=== PATIENT | female | born 1970 | race Caucasian/White ===

== ENCOUNTER 2016-10-05 14:48 | Emergency (ER) | payer OTHER ==
[2016-10-05 15:26] VITALS: BP 121/71
--- NOTE | 2016-10-05 15:57 | UC ---
Skin Complaint HPI - HPI Summary HPI Summary: bee sting on right forearm Sunday--has been red and itchy concerned it is infected - History of Current Complaint Chief Complaint: UCSkin Time Seen by Provider: 10/05/16 16:00 Stated Complaint: INFLAMED BEE STING Hx Obtained From: Patient Hx Last Menstrual Period: 09/24/16 ?: No Onset/Duration: Sudden Onset, Lasting Days - 3, Still Present Skin Exposure Onset/Duration: Days Ago - 3 days ago Timing: Constant Onset Severity: Mild Current Severity: Mild Location: Discrete Character: Swelling, Hives, Redness Aggravating: Nothing Alleviating: OTC Meds - benadryl, Other - itching Associated Signs & Symptoms: Negative: Drainage, Bruising, Tenderness, Red Streaks Related History: Possible Reaction to: Insect - Allergy/Home Medications Allergies/Adverse Reactions: Allergies Allergy/AdvReac Type Severity Reaction Status Date / Time No Known Allergies Allergy Verified 11/18/15 13:44 Review of Systems Constitutional: Negative Skin: Rash - local reaction to bee sting right forearm Eyes: Negative ENT: Negative Respiratory: Negative Cardiovascular: Negative Gastrointestinal: Negative Genitourinary: Negative Neurovascular: Negative Musculoskeletal: Negative Neurological: Negative Psychological: Negative All Other Systems Reviewed And Are Negative: Yes PMH/Surg Hx/FS Hx/Imm Hx Previously Healthy: Yes Endocrine History Of: Denies: Diabetes Cardiovascular History Of: Denies: Hypertension, Pacemaker/ICD GI/ History Of: Denies: Renal Disease Cancer History Of: Denies: Breast Cancer - Surgical History Surgical History: Yes Surgery Procedure, Year, and Place: DNC 2013. laparotomy 2007 [facility] - Family History Known Family History: Positive: None Family History: denies cardiovascular issues in family lineage - Social History Occupation: Employed Full-time Lives: With Family Alcohol Use: None Substance Use Type: None Smoking Status (MU): Never Smoked Tobacco Physical Exam Triage Information Reviewed: Yes Appearance: Well-Appearing, No Pain Distress, Well-Nourished Vital Signs: Initial Vital Signs Temp 98.5 F 10/05/16 15:19 Pulse 70 10/05/16 15:19 Resp 16 10/05/16 15:19 BP 121/71 10/05/16 15:19 Pulse Ox 100 10/05/16 15:19 Vital Signs Reviewed: Yes Eye Exam: Normal Eyes: Positive: Conjunctiva Clear ENT Exam: Normal ENT: Positive: Normal ENT inspection, Hearing grossly normal. Negative: Nasal congestion, Nasal drainage, Tonsillar swelling, Tonsillar exudate, Trismus, Muffled/hoarse voice Neck exam: Normal Neck: Positive: Supple, Nontender, No Lymphadenopathy Respiratory Exam: Normal Respiratory: Positive: Chest non-tender, Lungs clear, Normal breath sounds, No respiratory distress, No accessory muscle use Cardiovascular Exam: Normal Cardiovascular: Positive: RRR, No Murmur, Pulses Normal, Brisk Capillary Refill Musculoskeletal Exam: Normal Musculoskeletal: Positive: Strength Intact, ROM Intact, No Edema Neurological Exam: Normal Neurological: Positive: Alert, Muscle Tone Normal Skin Exam: Normal Skin: Positive: Other - 3 inches diameter localized erythemic repose to an insect sting Course/Dx - Course Course Of Treatment: prednisone, hydrocortisone, benadryl ice /cool soaks, observe for s/s of infection follow with pcp re-check prn - Differential Diagnoses - Skin Complaint Differential Diagnoses: Allergic Reaction, Cellulitis, Contact Dermatitis, Impetigo, Local Allergic Reaction - Diagnoses Provider Diagnoses: local reaction, rith fore arm to bee invenomation Discharge - Discharge Plan Condition: Stable Disposition: HOME Prescriptions: predniSONE TAB* [Deltasone TAB*] 40 mg PO DAILY #6 tab Patient Education Materials: Diphenhydramine (By mouth), Hydrocortisone (On the skin) Referrals: Latoya Mancini MD [Primary Care Provider] - If Needed
== END 2016-10-05 16:12 | disposition home or self-care (01) ==
LOC: UCEAST 14:48
DX: T63.441A Toxic effect of venom of bees, accidental (unintentional), initial encounter (principal); Y92.9 Unspecified place or not applicable
CPT/HCPCS: 99212; G0463

== ENCOUNTER 2017-03-29 09:41 | Observation (INO) | payer OTHER ==
[2017-03-29 10:20] LABS: Hematocrit 32 % (35-47); Hemoglobin 10.8 g/dl (12.0-16.0); Mean Corpuscular HGB Conc 33 g/dl (31-36); Mean Corpuscular Hemoglobin 33 pg (27-31); Mean Corpuscular Volume 98 fL (80-97); Mean Platelet Volume 8 um3 (7.4-10.4); Red Cell Distribution Width 13 % (10.5-15); White Blood Count 3.2 10^3/ul (3.5-10.8)
[2017-03-29 10:21] LABS: Comments Flag Yes
[2017-03-29 10:37] LABS: Blood Urea Nitrogen 9 mg/dL (6-24); CO2 Carbon Dioxide 23 mmol/L (22-32); Calcium 6.7 mg/dL (8.6-10.3); Chloride 118 mmol/L (101-111); EGFR Non-African American 108.1 (>60); Glucose 60 mg/dL (70-100); Sodium 144 mmol/L (133-145)
[2017-03-29 11:06] LABS: Anion Gap 3 mmol/L (2-11); Potassium 2.6 mmol/L (3.5-5.0)
[2017-03-29 12:17] LABS: ALT 19 U/L (7-52); AST 17 U/L (13-39); Albumin 3.9 g/dL (3.2-5.2); Alkaline Phosphatase 9 U/L (34-104); Anion Gap 4 mmol/L (2-11); BUN/Creatinine Ratio 12.9 (8-20); Blood Urea Nitrogen 11 mg/dL (6-24); CO2 Carbon Dioxide 29 mmol/L (22-32); Calcium 9.3 mg/dL (8.6-10.3); Chloride 105 mmol/L (101-111); EGFR Non-African American 72.3 (>60); Globulin 2.1 g/dL (2-4); Glucose 84 mg/dL (70-100); Sodium 138 mmol/L (133-145)
[2017-03-29] MEDS ORDERED: Scopolamine 1.5 mg* PATCH ONE (12:30)
[2017-03-29] MEDS ORDERED: Ondansetron INJ* 2 MG/ML VIAL ONE ×2 (12:31→14:29)
[2017-03-29] MEDS ORDERED: LORazepam TAB(*) 1 MG ONE (12:31)
[2017-03-29 12:50] LABS: Magnesium 1.4 mg/dL (1.9-2.7)
[2017-03-29] MEDS ORDERED: Ibuprofen TAB* 800 MG PO ONE (13:00)
--- NOTE | 2017-03-29 13:21 | CONSULT ---
Subjective Date of Service: 03/29/17 Interval History: Patient seen and examined at bedside. Pt states that she developed vomiting on Sunday (March 25) and was hospitalized in [place] for dehydration and IVFs. She is unsure if she had low potassium at that time. SHe also reports nausea last evening, but that has since resolved. Family History: Findings - Pt's mother had a history of Breast CA and passed at age 54. Denies family history of CAD or DM. Social History: Findings - Surrogate Decision maker: Alexeiforrest Terrell (Ted) Past Medical History: Unchanged from Admission Review of Systems - Review of Systems Constitutional Symptoms: Negative: Fatigue, Fever Dermatology: Positive: Normal HEENT: Positive: Normal Eyes: Positive: Normal Thyroid: Positive: Normal Pulmonary: Positive: Normal Cardiology: Positive: Normal Gastroenterology: Positive: Nausea, Vomiting Negative: Diarrhea Genital - Urinary: Positive: Normal Genitourinay - Female: Positive: Other - Heavy menses Neurology: Positive: Migraines - , none recently Psychiatry: Positive: Normal Objective Oxygen Devices in Use Now: None Appearance: NAD, laying on a stretcher Eyes: No Scleral Icterus Ears/Nose/Mouth/Throat: Mucous Membranes Moist Respiratory: Symmetrical Chest Expansion and Respiratory Effort, Clear to Auscultation Cardiovascular: NL Sounds; No Murmurs; No JVD, RRR Abdominal: NL Sounds; No Tenderness; No Distention Extremities: No Edema Skin: No Rash or Ulcers Neurological: Alert and Oriented x 3, NL Muscle Strength and Tone Lines/Tubes/Other Access: Clean, Dry and Intact Peripheral IV - site benign Nutrition: - - NPO at this time for a procedure Result Diagrams: 03/29/17 10:04 03/29/17 11:20 Assessment/Plan - Billing Ms. Meraz is a 46 yo female with PMH significant for endometriosis, migraine , IBS, hydromyelia and ADHD who presented to the hospital for an elective UAE with Dr. Finn. Plan By Medical Problem: 1. Pelvic and perineal pain secondary to uterine fibroids. Management per Dr. Finn. 2. Electrolyte abnormality. Hypokalemia. Pt's K+ 2.6 this AM, repeat labs about 1 hour later show K+ 4.0. Will ask lab to re-run the labs. Will hold on electrolyte replacement until labs have be re-run. If labs are WNL, ok to go ahead with procedure. VTE PPX: Diet: NPO at this time for a procedure Code Status: Full code Admission Status and Rationale: OBV.
[2017-03-29] MEDS ORDERED: Clindamycin 900 MG IVPREMIX(* 900 MG/50 ML SDV IV ONE (14:00)
[2017-03-29] MEDS ORDERED: Heparin 2 UNITS/ML IVPREMIX* 2,000 ML IV ONE (14:09)
[2017-03-29] MEDS ORDERED: Iohexol 350 (CONTRAST) 200 ML MDV IV ONE (14:09)
[2017-03-29] MEDS ORDERED: Flumazenil* 0.1 MG/ML 5 ML MDV ONE (14:12)
[2017-03-29] MEDS ORDERED: Midazolam* 1 MG/ML 5 ML VIAL (5 MG) ONE (14:12)
[2017-03-29] MEDS ORDERED: Naloxone* 0.4 MG/ML 1 ML VIAL ONE (14:12)
[2017-03-29] MEDS ORDERED: fentaNYL* 50 MCG/ML 5 ML VIAL (250 MCG VIAL) ONE ×2 (14:12→15:35)
[2017-03-29] MEDS ORDERED: Lidocaine 1% INJ* 10 MG/ML 30 ML SDV ONE (14:14)
[2017-03-29] MEDS ORDERED: Ketorolac INJ* 30 MG/ML 1 ML VIAL ONE ×2 (14:28→14:35)
[2017-03-29] MEDS ORDERED: nitroGLYCERIN DRIP* 250 ML ONE (14:44)
[2017-03-29] MEDS ORDERED: HYDROmorphone* 1 MG/ML 1 ML SYR ONE (16:02)
[2017-03-29] MEDS ORDERED: PROCHLORPERAZINE INJ 5 MG/ML 2 ML VIAL ONE (16:18)
[2017-03-29] MEDS ORDERED: PROCHLORPERAZINE INJ 5 MG/ML 2 ML VIAL IV PRN (17:02)
[2017-03-29] MEDS ORDERED: HYDROmorphone PCA* 20 MG/20 ML PCA.SYRING PCA SCH (17:15)
--- NOTE | 2017-03-29 17:35 | RAD ---
CPT II Codes: 6045F Procedure(s) performed: * Pelvic arteriogram including the bilateral iliac arteries including the proximal portions of the superficial femoral arteries, femoral profundi and bilateral uterine arteries. * Catheter arteriography of the bilateral uterine arteries. * Catheter embolization of the bilateral uterine arteries. Date of service: March 29, 2017 Indication for procedure: Pelvic pain in the presence of uterine fibroids. Comparison: MRI of the pelvis March 09, 2017 Contrast: 55 mL Omnipaque 300 Fluoroscopy Time: 25 minutes Vessels Accessed: Percutaneous access was obtained with ultrasound guidance in the right common femoral artery in the retrograde direction. Catheter arteriography, with the catheter tip located within the lumen of the following arteries, was performed at the left uterine artery, left internal iliac artery, left common iliac artery, right internal iliac artery and right uterine artery. Anesthesia: Conscious sedation with IV Fentanyl and Versed as well as local 1% lidocaine injected locally at the arteriotomy site. Conscious sedation time: Timeout: 1433 hours Case end: 1617 hours Total conscious sedation time: 1 hour and 44 minutes Additional medications: * 500 mcg IA nitroglycerin injected intermittently throughout the course of the procedure to alleviate arterial spasm. * Intra-arterial Toradol, 15 mg injected into each uterine artery, for a total of 30 mg intra-arterial. * Intravenous Toradol, 30 mg. * Transdermal scopolamine patch 1.5 mg applied to the mastoid process prior to the procedure beginning. * A total of 8 mg Zofran was administered intravenously. * Compazine 5 mg IV. * Dilaudid 1 mg IV. PROCEDURE NOTE AND INTRAPROCEDURAL IMAGING FINDINGS: Immediately prior to the procedure the patient signed consent after thoroughly discussing all risks and benefits. The patient was positioned on the fluoroscopy table in the supine position and the bilateral groins were shaved, prepped and draped in standard sterile fashion. Using fluoroscopic imaging the location of the right common femoral head was marked externally with a skin marker on the patient's groin. Utilizing sonographic guidance and palpation the right common femoral artery was cannulated overlying the right femoral head with an 18-gauge needle. An ultrasound image was saved. A 0.035 inch Bentson wire was slowly and smoothly advanced to the aortic bifurcation under fluoroscopic imaging. No buckling of the wire was visualized to indicate dissection. Over the wire a 5-Guatemalan SideArm sheath was advanced into the artery and the inner stiffener was removed. Utilizing a Bentson wire and 5-Guatemalan Contra 2 flush catheter the left common iliac artery was accessed. Over the wire the Contra 2 was exchanged for a 5 Guatemalan angled tip catheter and this was used to access the left internal iliac artery. With the tip of the catheter in the proximal most portion of the left internal iliac artery, angiography was performed to detail the branches of the left internal iliac artery which had depicted the uterine artery providing blood flow to the patient's uterine fibroid. Once the uterine artery was identified, a Renegade High-flow microcatheter and microwire were advanced into the parent catheter and, in conjunction with contrast angiography, the uterine artery was identified and selected with the micro catheter. Prior to embolization, contrast injection into the horizontal portion of the uterine artery demonstrated no large, obvious collateral blood flow to the ovary or a definite cervicovaginal branch descending inferiorly. Intra-arterial nitroglycerin was injected intermittently to alleviate arterial spasm. Under fluoroscopic control approximately 1/2 vial Embozenes 500 micron particles followed by 1/2 vial of 500-700 micron Embospheres were slowly injected into the uterine artery to near complete stasis. Belt through the embolization 15 mg of Toradol was injected intra-arterially. The microcatheter was pulled back into the more proximal descending portion of the uterine artery and contrast angiography depicted near complete stasis of the uterine artery. The microcatheter was removed and replaced with an 0.035" guidewire. Utilizing the guidewire and the 5-Guatemalan angled tipped catheter, a "Akin's loop" was formed in the lower aorta above the bifurcation. With the loop formed and the wire within the catheter, the system was slowly retracted gaining access to the ipsilateral right internal iliac artery. Contrast angiography with the tip of the 5-Guatemalan catheter in the proximal most portion of the right internal iliac artery demarcated the right uterine artery and multiple oblique projections were obtained to best depict the origin of the uterine artery. Once the uterine artery was identified, a Renegade High-flow microcatheter and microwire were advanced into the parent catheter and, in conjunction with contrast angiography, the uterine artery was identified and selected with the micro catheter. Prior to embolization, contrast injection into the horizontal portion of the uterine artery demonstrated no large, obvious collateral blood flow to the ovary or a definite cervicovaginal branch descending inferiorly. Contrast arteriography depicted a small collateral uterine artery branching off of the proximal horizontal portion of the main uterine artery. This accessory artery was seen delivering arterial flow to the uterus and/or fibroids. Intra-arterial nitroglycerin was injected intermittently to alleviate arterial spasm. Under fluoroscopic control, the remaining 1/2 vial Embozenes 500 micron particles followed by 1/2 vial of 500-700 micron Embospheres were slowly injected into the uterine artery to near complete stasis. Belt through the embolization 15 mg of Toradol was injected intra-arterially. The microcatheter was pulled back and the small accessory uterine artery was selected, the catheter advanced in the mid horizontal portion and contrast arteriography was performed confirming this accessory artery providing flow to only the uterus and uterine fibroids. A small amount of embolic particles was injected into this branch artery as well to a chief near complete stasis. The microcatheter was pulled back into the more proximal descending portion of the uterine artery and contrast angiography depicted near complete stasis of the uterine artery as well as a small accessory horizontal right uterine artery. The microcatheter and wire were removed and the 0.035" wire was readvanced to the tip of the catheter. The system was then advanced towards the aorta. The contralateral left common iliac artery was accessed and the "Akin loop" was removed from the catheter. Finally the catheter and wire were removed. The access sheath was removed and pressure was held at the common femoral arteriotomy for approximately 20 minutes. There were no signs of bleeding at the right groin access site and the site was dressed with sterile gauze and Tegaderm. The patient tolerated the procedure well and was transferred to the short stay recovery unit in stable condition for routine overnight observation and pain and nausea control. SUMMARY OF PROCEDURE, IMAGING FINDINGS AND INTERVENTIONS PERFORMED: 1. Diagnostic studies performed: * Arterial access was obtained at the right common femoral artery in the retrograde direction direction (i.e. towards the heart) with ultrasound guidance. A sonographic image was recorded. * Diagnostic catheter angiography (necessary to perform the appropriate interventions) was performed with the catheter tip in the bilateral common iliac arteries, bilateral internal iliac arteries and bilateral uterine arteries. * Catheter arteriography was performed of the bilateral iliac arterial system and specifically the bilateral uterine arteries. 2. Interpretation of diagnostic studies performed: * Bilateral uterine arteries supplying the patient's fibroid uterus. * There is a small accessory right uterine artery branching off of the proximal horizontal portion of the main right uterine artery. 3. Surgical interventions performed: * Near stasis embolization of the bilateral uterine arteries utilizing a total of 1 vial Embozenes 500 microns and one vial Embospheres 500-700 microns. * Microcatheter embolization was performed in the bilateral uterine arteries as well as the right sided accessory uterine artery which was specifically selected and embolized. 4. Interpretation of interventions performed: * Final arteriography demonstrated near complete stasis of the bilateral uterine arteries.. PLAN: 1. The patient will be admitted to short stay surgical unit for routine overnight observation including pain and nausea control. 2. Outpatient clinical and imaging follow-up according to the Interventional Radiology protocol.
--- NOTE | 2017-03-29 18:17 | PN ---
Progress Note - Progress Note Date of Service: 03/29/17 SOAP: Subjective: Patient sleeping. Arousable. Denies nausea. Has taken sips of ice water. 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 Plan: 1. Standard IR protocol for pain and nausea control overnight. 2. Bedrest to end at 2014 (4 hours status post arterial sheath removal). 3. Garner catheter d/c at 2215 hours. 4. staffing specialist encouraged to call me for UFE related questions/issues. My pager and cell phone were made available.
[2017-03-29] MEDS ORDERED: Ketorolac INJ* 15 MG/ML 1 ML VIAL IV PUSH PRN (20:15)
[2017-03-29] MEDS: Ondansetron INJ* 2 MG/ML VIAL IV SCH (20:15)
[2017-03-29] MEDS: Ketorolac INJ* 15 MG/ML 1 ML VIAL IV PUSH SCH (20:18)
[2017-03-30] MEDS: Ondansetron INJ* 2 MG/ML VIAL IV SCH (02:20)
[2017-03-30] MEDS: Ketorolac INJ* 15 MG/ML 1 ML VIAL IV PUSH SCH (02:20)
[2017-03-30 06:56] LABS: BUN/Creatinine Ratio 8.9 (8-20); Calcium 8.6 mg/dL (8.6-10.3); EGFR African American 101.2 (>60); EGFR Non-African American 78.7 (>60); Potassium 4.2 mmol/L (3.5-5.0)
[2017-03-30] MEDS ORDERED: oxyCODONE/Acetamin 5/325 MG* TAB PO PRN ×2 (07:47→08:18)
[2017-03-30] MEDS: Ondansetron ODT TAB* 4 MG PO SCH ×2 (08:17→12:40)
[2017-03-30 08:23] VITALS: BP 150/79
--- NOTE | 2017-03-30 08:30 | PN ---
Progress Note - Progress Note Date of Service: 03/30/17 SOAP: Subjective: Patient states she is experiencing her "usual" 4/10 low back pain. Intermittent nausea overnight, but okay now. Wants to eat breakfast. Objective: [] Selected Entries 03/29/17 03/30/17 03/30/17 23:41 03:53 04:00 Temperature 99.3 F 98.0 F Temperature Oral Source Pulse Rate 54 Respiratory Rate Blood Pressure 154/79 (mmHg) Blood Pressure 98 Mean O2 Sat by Pulse Oximetry Patient on Room Yes Air 03/30/17 06:00 Temperature Temperature Source Pulse Rate Respiratory 15 Rate Blood Pressure (mmHg) Blood Pressure Mean O2 Sat by Pulse 96 Oximetry Patient on Room Air NAD, AAO x 3 Sleepy, but responsive to voice. Low abdomen and pelvis is soft, minimal tenderness to palpation over the pelvis Right groin is soft, nontender, non-ecchymotic. Dressing is CDI. 2+ pulses in RLE RLE neuromuscular intact Assessment: 46 YOF POD #1 Uterine Artery Embolization demonstrating good progress. Plan: 1. Transition IV medications to PO as ordered. 2. Ambulation with assistance. 3. Gently encourage advancing diet. 4. Outpatient medications will be as follows: * Toradol 10 mg PO Q 6 hours x 3 days, dispense #16 (one refill) * Following 3 days of Toradol; Ibuprofen 800 mg PO Q 6 hours x 3days (attempt to titrate dose downward to 400 mg) * Percocet 5/325, take 1 or 2 tablets PO every 6 hours PRN breakthrough pain x 5 days, dispense #30 * Zofran 4 mg PO Q 6 hours x 5 days, dispense #30 (one refill) * Scopolamine 1.5 mg transdermal patch: replace current patch on mastoid process on Sunday04/01/17 @ 0900 hours and wear x 3 days. * Colace 100 mg PO BID x 7 days * The dispense request is greater than the scheduled regimen to allow for additional doses if necessary 5. Routine Interventional Radiology follow up will include RN telephone call Sunday04/02/17 and clinic follow up ~6 weeks and ~6 months post UFE.
[2017-03-30] MEDS: Ketorolac TAB * 10 MG TAB PO SCH ×2 (08:42→12:40)
--- NOTE | 2017-03-30 12:04 | PN ---
Subjective Date of Service: 03/30/17 Interval History: Patient seen and examined at bedside. Pt states that she is feeling well and pain/nausea are controlled. Denies fever, chills, shortness of breath, chest discomfort, V/D. Pt has been up and walking around and tolerated breakfast. Family History: Findings - Pt's mother had a history of Breast CA and passed at age 54. Denies family history of CAD or DM. Social History: Findings - Surrogate Decision maker: Alexei "Galo Terrell Past Medical History: Findings - Endometriosis, migraines, ADHD, IBS and hydomyelia Objective Active Medications: Ketorolac Tromethamine (Toradol Tab *) 10 mg PO Q6H BRYNN Stop: 04/02/17 07:59 Ondansetron HCl (Zofran Odt Tab*) 4 mg PO Q6H BRYNN Stop: 04/04/17 07:59 Oxycodone/Acetaminophen (Percocet 5/325 Tab*) 2 tab PO Q6H PRN Reason: PAINStop : 04/04/17 07:46 Oxycodone/Acetaminophen (Percocet 5/325 Tab*) 1 tab PO Q6H PRN Reason: PAIN Prochlorperazine Edisylate (Compazine Inj*) 5 mg IV Q6H PRN Reason: NAUSEA/ VOMITING Vital Signs 03/29/17 03/29/17 03/29/17 17:00 17:05 17:11 Temperature 98.3 F Pulse Rate 58 58 Respiratory 12 12 12 Rate Blood Pressure 151/81 151/81 (mmHg) O2 Sat by Pulse 100 100 Oximetry 03/29/17 03/29/17 03/29/17 17:14 17:15 17:17 Temperature 97.4 F Pulse Rate 58 58 Respiratory 13 13 Rate Blood Pressure 151/81 154/85 (mmHg) O2 Sat by Pulse 100 100 Oximetry 03/29/17 03/29/17 03/29/17 17:30 17:51 17:52 Temperature 98.3 F 98.4 F Pulse Rate 59 64 Respiratory 16 16 16 Rate Blood Pressure 149/84 155/78 (mmHg) O2 Sat by Pulse 100 100 Oximetry 03/29/17 03/29/17 03/29/17 17:59 18:00 18:03 Temperature 98.4 F Pulse Rate 54 Respiratory 15 16 Rate Blood Pressure 150/85 (mmHg) O2 Sat by Pulse 100 99 Oximetry 03/29/17 03/29/17 03/29/17 18:09 18:14 18:25 Temperature Pulse Rate 57 Respiratory 16 16 16 Rate Blood Pressure 154/87 (mmHg) O2 Sat by Pulse 99 100 Oximetry 03/29/17 03/29/17 03/29/17 18:28 18:30 18:59 Temperature 98.8 F 98.1 F Pulse Rate 54 58 Respiratory 16 16 Rate Blood Pressure 150/85 158/82 (mmHg) O2 Sat by Pulse 100 100 Oximetry 03/29/17 03/29/17 03/29/17 19:09 19:10 19:54 Temperature 98.5 F Pulse Rate 55 Respiratory 16 16 12 Rate Blood Pressure 155/84 (mmHg) O2 Sat by Pulse 99 98 100 Oximetry 03/29/17 03/29/17 03/29/17 20:05 20:55 21:19 Temperature 98.5 F Pulse Rate 52 Respiratory 12 14 12 Rate Blood Pressure 150/80 (mmHg) O2 Sat by Pulse 99 100 99 Oximetry 03/29/17 03/29/17 03/29/17 22:00 22:14 23:41 Temperature 99.3 F Pulse Rate 54 Respiratory 16 16 14 Rate Blood Pressure 161/75 (mmHg) O2 Sat by Pulse 99 99 100 Oximetry 03/30/17 03/30/17 03/30/17 00:00 00:06 01:03 Temperature Pulse Rate Respiratory 14 14 14 Rate Blood Pressure (mmHg) O2 Sat by Pulse 99 98 98 Oximetry 03/30/17 03/30/17 03/30/17 02:00 03:53 04:00 Temperature 98.0 F Pulse Rate 54 Respiratory 15 14 14 Rate Blood Pressure 154/79 (mmHg) O2 Sat by Pulse 98 99 96 Oximetry 03/30/17 03/30/17 03/30/17 06:00 07:20 07:24 Temperature 98.3 F Pulse Rate 50 Respiratory 15 12 10 Rate Blood Pressure 150/79 (mmHg) O2 Sat by Pulse 96 98 Oximetry 03/30/17 08:00 Temperature Pulse Rate Respiratory 14 Rate Blood Pressure (mmHg) O2 Sat by Pulse 99 Oximetry Oxygen Devices in Use Now: None Appearance: NAD, sitting up on side of bed Eyes: No Scleral Icterus Ears/Nose/Mouth/Throat: Mucous Membranes Moist Respiratory: Symmetrical Chest Expansion and Respiratory Effort, Clear to Auscultation Cardiovascular: NL Sounds; No Murmurs; No JVD, RRR Abdominal: NL Sounds; No Tenderness; No Distention Extremities: No Edema Skin: No Rash or Ulcers Neurological: Alert and Oriented x 3, NL Muscle Strength and Tone Lines/Tubes/Other Access: Clean, Dry and Intact Peripheral IV - site benign Nutrition: Taking PO's Result Diagrams: 03/29/17 10:04 03/30/17 06:21 Assess/Plan/Problems-Billing Ms. Meraz is a 46 yo female with PMH significant for endometriosis, migraine , IBS, hydromyelia and ADHD who presented to the hospital for an elective UAE with Dr. Finn. - Patient Problems (1) Uterine fibroid Code(s): D25.9 - LEIOMYOMA OF UTERUS, UNSPECIFIED SNOMED Code(s): 99469490 Comment: - POD #1 S/P UFE - Pain and nausea are controlled - Management per Dr. Finn (2) Electrolyte abnormality Code(s): E87.8 - OTH DISORDERS OF ELECTROLYTE AND FLUID BALANCE, NEC SNOMED Code(s): 054676703 Comment: - Electrolytes WNL today, suspect a lab error with first set yesterday AM (3) DVT prophylaxis Code(s): ZFF2978 - SNOMED Code(s): 163790451 (4) Full code status Code(s): Z78.9 - OTHER SPECIFIED HEALTH STATUS SNOMED Code(s): 809434759 Status and Disposition: OBV. Stable for discharge to home today.
--- NOTE | 2017-03-31 05:09 | DS ---
CC: Dr. Latoya Mancini; Kandi Crockett NP; Dr. Doni Finn * DISCHARGE SUMMARY: DATE OF ADMISSION: 03/29/17 DATE OF DISCHARGE: 03/30/17 ATTENDING PHYSICIAN: Dr. Williams Aldrich * (dictated by Isha Fontana NP) PRIMARY CARE PROVIDER: Dr. Latoya Mancini. DIGITAL CIRCUIT DESIGNER: Kandi Crockett NP. PROCEDURES WHILE IN THE HOSPITAL: Status post uterine fibroid embolization with Dr. Doni iFnn on 03/29/17. STUDIES WHILE IN THE HOSPITAL: None. DISCHARGE MEDICATIONS: New home medications: 1. Colace 100 mg oral twice daily for 7 days. 2. Toradol 10 mg oral every 6 hours for 3 days. 3. Zofran 4 mg oral every 6 hours for 5 days. 4. Scopolamine 1.5 mg patch apply on Sunday, April 01 and remove after 3 days. 5. Ibuprofen 800 mg oral every 6 hours to start after completion of Toradol, take for 3 days and attempt to titrate down to 400 mg doses. 6. Percocet 5/325 one to two tablets oral every 6 hours as needed for breakthrough pain. Continued home medications: 1. Ritalin 10 mg oral twice daily. 2. Multivitamin 1 tablet oral daily. 3. Fish oil 1 capsule oral daily. 4. Vitamin C 500 mg oral daily. 5. Vitamin D 1000 units oral daily. 6. Licorice 1 tablet oral daily. 7. Super B Complex 1 capsule oral daily. DISCONTINUED MEDICATION: 1. Lorcet discontinue while taking Percocet. HISTORY OF PRESENT ILLNESS/HOSPITAL COURSE: Ms. Meraz is a 46-year-old female with past medical history significant for endometriosis, migraine, ADHD, IBS, and uterine fibroids who presented to the hospital for an elective uterine fibroid embolization with Dr. Finn on March 29. The hospitalists were asked to evaluate the patient preoperatively for hypokalemia. The patient's initial labs reported a potassium of 2.6. Repeat labs showed a potassium of 4.0. It was felt that the initial set of labs had sometime of lab error. The patient proceeded to have her UFE with Dr. Finn. There were no complications during the procedure. The patient is now postop day 1 and feeling as though her pain and nausea are controlled. She has been transitioned from IV to p.o. pain medications and ambulating with assist. She is urinating without difficulty. She is tolerating a regular diet. Ms. Meraz is ready for discharge to home today. Ms. Meraz is stable for discharge to home today. Vital signs are as follows : Temperature 98.3, heart rate 50, respiratory rate 14, O2 sat 98% on room air, blood pressure 150/79. DISCHARGE PLAN: Ms. Meraz will be discharged to home. ACTIVITY: As tolerated. DIET: Regular diet. For pain management status post UFE, she will be placed on Toradol 10 mg oral every 6 hours for 3 days followed by ibuprofen 800 mg oral every 6 hours for 3 days and attempting to titrate down to 400 mg doses if possible. The patient will also have Percocet 5/325 one to two tablets every 6 hours as needed for breakthrough pain for 5 days. The patient will be placed on Zofran 4 mg oral every 6 hours for 5 days. She will also have a scopolamine patch that she is being discharged home with and we will change that out for a new patch on SundayApril 01 and will wear that for 3 days and then remove. The patient will also be on Colace 100 mg oral twice daily for 7 days. The patient will receive a routine radiology followup phone call by a registered nurse on March 03 and will be seen in followup by Dr. Finn in approximately 6 weeks and then in 6 months post UFE. The patient should follow up with her primary care provider, Dr. Latoya Mancini as needed and her DIGITAL CIRCUIT DESIGNER, Kandi Crockett as needed. The patient has been instructed to monitor her catheterization site for swelling or bleeding and to call Dr. Finn if she develops a fever, swelling or active bleeding at the puncture site. The patient has been asked to return to the emergency room for any chest pain, shortness of breath. The patient has been continued on all of her usual home medications. This is a summarized report of a complex medical history and hospital stay. For further details, please see the entire medical record. TIME SPENT: Time for this discharge was 50 minutes, greater than half of that was spent [id number] with the patient and discussing discharge plans and instructions. CONDITION ON DISCHARGE: Stable. Reviewed by LISETTE DAVIS 03/31/17 0731 [id number]/[facility] #: [id number] MTDD
== END 2017-03-30 12:50 | disposition home or self-care (01) ==
LOC: CHICATH 09:41 → SSU 17:04
PROVIDERS: ADMIT Radiology Diagnostic Radiology; ATTEND Internal Medicine
DX: D25.9 Leiomyoma of uterus, unspecified (principal); N80.9 Endometriosis, unspecified; F90.9 Attention-deficit hyperactivity disorder, unspecified type; K58.9 Irritable bowel syndrome, unspecified; E87.8 Other disorders of electrolyte and fluid balance, not elsewhere classified; Z32.02 Encounter for pregnancy test, result negative
CPT/HCPCS: 36415; 37243; 76937; 80048; 80053; 83735; 84702; 85027; 93005; 96374; A9270-GY; C1725; C1884; C1887; G0378; J0780; J1170; J1644; J1885; J2001; J2250; J2310; J2405; J3010

== ENCOUNTER 2017-08-27 09:50 | Emergency (ER) | payer OTHER ==
[2017-08-27] MEDS ORDERED: Acetaminophen TAB* 325 MG PO ONE (11:23)
--- NOTE | 2017-08-27 11:29 | UC ---
Abdominal Pain Female HPI - HPI Summary HPI Summary: 46 yo WF h/o endometriosis on [place] for pain control during her menses c/o severe lower abd pain. LMP last week.last BM this Am but suffers from constipation. Also c/o mild dysuria and discomfort. - History of Current Complaint Chief Complaint: UCAbdominalPain Stated Complaint: ABDOMINAL PAIN Time Seen by Provider: 08/27/17 10:59 Hx Obtained From: Patient Hx Last Menstrual Period: 08/21/17 Onset/Duration: Gradual Onset Severity Initially: Moderate Severity Currently: Severe Radiates to: Other - right shoulder Character: Sharp Aggravating Factor(s): Nothing Alleviating Factor(s): Nothing Allergies/Adverse Reactions: Allergies Allergy/AdvReac Type Severity Reaction Status Date / Time No Known Allergies Allergy Verified 08/27/17 10:10 Home Medications: Home Medications Medical Marijuana 1 inh INH SEE INSTRUCTIONS PRN 08/27/17 [History Confirmed 01/08] PMH/Surg Hx/FS Hx/Imm Hx - Surgical History Surgical History: Yes Surgery Procedure, Year, and Place: D & C 2012. laparotomy 2007 [facility] - for fibroids, endometriosis. 03/2017 - uterine fibroid embolization - Family History Known Family History: Positive: None Family History: denies cardiovascular issues in family lineage - Social History Alcohol Use: Occasionally Substance Use Type: Marijuana Substance Use Comment - Amount & Last Used: Medical Marijuana Smoking Status (MU): Never Smoked Tobacco - Immunization History Most Recent Influenza Vaccination: Not UTD Review of Systems Constitutional: Negative Skin: Negative Eyes: Negative ENT: Negative Respiratory: Negative Cardiovascular: Negative Gastrointestinal: Abdominal Pain - lower abd pain 8/10 Genitourinary: Dysuria Motor: Negative Neurovascular: Negative Musculoskeletal: Negative Neurological: Negative Psychological: Negative All Other Systems Reviewed And Are Negative: Yes Physical Exam Triage Information Reviewed: Yes Vital Signs: Initial Vital Signs Temp 37.2 C 08/27/17 10:03 Pulse 75 08/27/17 10:03 Resp 16 08/27/17 10:03 BP 131/61 08/27/17 10:03 Pulse Ox 100 08/27/17 10:03 Eye Exam: Normal ENT Exam: Normal Dental Exam: Normal Neck exam: Normal Neck: Positive: 1 Respiratory Exam: Normal Cardiovascular Exam: Normal Abdominal Exam: Other Abdomen Description: Positive: Soft, Other: - lower abd tenderness, moderate, mild rebound (more subjective), NO guarding. Negative: CVA Tenderness (R), CVA Tenderness (L), Distended Musculoskeletal Exam: Normal Neurological Exam: Normal Psychological Exam: Normal Skin Exam: Normal Abd Pain Female Course/Dx - Course Course Of Treatment: On Abd XR flat and upright revealed Moderate to severe fecal impaction with more pronounced dilated loops of bowel on left splenic flexture, sigmoid colon and throughout. Pt takes [place] for endometriosis pain which exacerbated current sx. Advised to obtain to get OFF norco and to get ANOTHER opinion for a hysterctomy as her current [facility] MD's are opting for "experiemental tx's for her enodmetriosis" and refuses to do a hysterectomy - advised to call [facility] in [facility] for [facility] appt. Pt acknowledged quitting [place] and will take Lactulose and Colace as directed. - Differential Dx/Diagnosis Provider Diagnoses: Fecal impaction Discharge - Discharge Plan Condition: Stable Disposition: HOME Prescriptions: Lactulose* 30 ml PO QID 3 Days #[facility] [place] Materials: Fecal Impaction (ED) Referrals: Latoya Mancini MD [Primary Care Provider] - Additional Instructions: as tolerated
--- NOTE | 2017-08-27 11:49 | RAD ---
INDICATION: Abdominal pain x4 days. COMPARISON: None TECHNIQUE: Supine and upright views of the abdomen were obtained. FINDINGS: There is a moderate amount of stool overlying the cecum and ascending colon. The transverse colon is mostly gas-filled. There is gas and stool overlying the expected location of the rectum. There is no pathologically dilated bowel. There is no evidence of free intraperitoneal air. No grossly abnormal or pathologic appearing calcifications are noted. Visualized bones are within normal limits for the patient's age. IMPRESSION: There is a moderate amount of stool overlying the cecum and ascending colon without pathologic dilatation.
[2017-08-27 11:54] VITALS: BP 124/68
--- OUTSIDE RECORDS SUMMARY | 2017-08-27 14:14 | XMS REPORT ---
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 Group Name: [place] [address] PayID: [id number] Problems Date Description Provider Status Onset: 08/10/2015 Attention deficit hyperactivity JAMIN Silva Active disorder Onset: 11/30/2016 Syringomyelia and syringobulbia Latoya Mancini M.D. Active Onset: 08/10/2015 Endometriosis of uterus Clau Gonzalez M.D. Active Onset: 10/25/2011 Acute pharyngitis Effie Oakes M.D. Resolved Resolved: 08/10/2015 Onset: 10/25/2011 Vaginitis and vulvovaginitis Effie Oakes M.D. Resolved Resolved: 08/10/2015 Onset: 10/25/2011 Otitis media Effie Oakes M.D. Resolved Resolved: 08/10/2015 Family History Date Family Member(s) Problem(s) Comments Father prostate problems, hypothyroid. Mother breast cancer at age 54, schizophrenic Number of Children None First Brother anxiety Second Brother anxiety. Paternal Grandfather MA in his late 60s Maternal Grandmother in her 80s- old age Paternal Uncle 2 uncles with mental illness Maternal Aunt 2 aunts - mental illness Social History Type Date Description Comments Education Highest level of education completed is a doctorate speech language Pathology, [employer]. Living Situation Lives with spouse Diet Diet is healthy and well balanced Sleep Typically sleeps 8 hours a night. 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 ETOH Use Occasionally consumes beer 3-4 drinks a week. Smoking non smoker. Daily Caffeine 1 strong cup of coffee and daily. one cup of tea. Exercise Type/Frequency Exercises regularly walks to [place] and back home daily. Lots of stretching. Allergies, Adverse Reactions, Alerts Date Description Reaction Status Severity Comments 10/25/2011 NKDA active Medications Medication Date Status Form Strength Qnty SIG Indications Ordering Provider Hydrocodone-Aceta 11/30 Active Tablets 5-325mg 60tab 1-2 by G95.0 Latoya eMdel min s mouth 4 Addis, times a day M.D. as needed Ritalin 08/25 Active Tablets 10mg 60tab 1 by mouth F90.9 Latoya Medel /2012 s twice a day Noe Mancini Multivitamins Active Capsules 1 po qd Unknown /0000 Fish Oil Active Capsules 1 po qd Unknown /0000 Ibuprofen Active Tablets 800mg prn Unknown /0000 Physical Therapy 02/17 Hx evaluate Latoya Medel /2015 and treat. 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 s prn dt Samantha, - call M.DStephanie 04/04 Verapamil HCL ER 06/27 Hx Caps ER 120mg 30cap take 1 24HR s daily for Cheyprabhjot, - prevention M.D. 04/04 Biaxin 12/12 Hx Tablets 500mg 20tab take one 461.8 s tablet po Diane, - bid x 10 [employer] SAL[employer]INEER 06/27 days all medication Augmentin 10/25 Hx Tablets 500-125mg 14tab one tab po 382.9 Effie M. s bid for 7 jacek, - days M.D. 12/11 Antipyrine/Benzoc 10/25 Hx Solution 54-14mg/m 15ml 4 gtts 382.9 [facility]. l affected Rufinajacek, - ear qid prn M.D. 12/11 Diflucan 10/25 Hx Tablets 150mg 2tabs 1 po times 616.10 Effie M. January, - repeat in 4 M.D. symptoms persist Metrolotion 10/12 Hx Lotion 0.75% apply 2 times daily von - to clean [place], 10/25 face M.D. 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 10/25 Ibuprofen 00/ Hx Tablets 1 po up to Unknown /0000 4 times a - day for 12/11 mens Cyclobenzaprine Hx Tablets 10mg prn Unknown HCL /0000 - 02/08 Vaginal Valium 00/00 Hx 5mg Unknown /0000 - 08/02 Vital Signs Date Vital Result Comment 08/02/2017 BP Systolic 120 mmHg BP Diastolic 70 mmHg Heart Rate 68 /min Body Temperature 98.0 F Respiratory Rate 18 /min Height 64 inches 5'4" Weight 150.00 lb BMI (Body Mass Index) 25.7 kg/m2 11/30/2016 BP Systolic 120 mmHg BP Diastolic 80 mmHg Heart Rate 76 /min Body Temperature 97.9 F Respiratory Rate 18 /min Weight 150.00 lb 06/29/2016 BP Systolic 110 mmHg BP Diastolic 78 mmHg Heart Rate 68 /min Body Temperature 98.8 F Respiratory Rate 16 /min Height 64 inches 5'4" Weight 144.00 lb BMI (Body Mass Index) 24.7 kg/m2 02/09/2016 BP Systolic 100 mmHg BP Diastolic 70 mmHg Heart Rate 72 /min Body Temperature 98.4 F Respiratory Rate 18 /min Height 64.25 inches 5'4.25" Weight 150.00 lb BMI (Body Mass Index) 25.5 kg/m2 08/10/2015 BP Systolic 130 mmHg BP Diastolic 76 mmHg Heart Rate 80 /min Body Temperature 97.3 F Respiratory Rate 16 /min Height 64.25 inches 5'4.25" Weight 139.00 lb BMI (Body Mass Index) 23.7 kg/m2 05/11/2015 BP Systolic 112 mmHg BP Diastolic 64 mmHg Heart Rate 68 /min Body Temperature 98.6 F Height 64.25 inches 5'4.25" Weight 141.00 lb BMI (Body Mass Index) 24.0 kg/m2 01/01/2015 BP Systolic 112 mmHg BP Diastolic 72 mmHg Heart Rate 76 /min Body Temperature 97.9 F Height 64 inches 5'4" Weight 145.00 lb BMI (Body Mass Index) 24.9 kg/m2 12/16/2014 BP Systolic 110 mmHg BP Diastolic 80 mmHg Heart Rate 78 /min Body Temperature 99.9 F Respiratory Rate 16 /min O2 % BldC Oximetry 98 % Height 64 inches 5'4" Weight 146.00 lb BMI (Body Mass Index) 25.1 kg/m2 04/04/2014 BP Systolic 118 mmHg BP Diastolic 80 mmHg Heart Rate 72 /min Body Temperature 98.1 F Respiratory Rate 16 /min Height 64 inches 5'4" Weight 148.12 lb BMI (Body Mass Index) 25.4 kg/m2 06/27/2013 BP Systolic 102 mmHg BP Diastolic 60 mmHg Heart Rate 64 /min Body Temperature 98.5 F Respiratory Rate 16 /min Height 64 inches 5'4" Weight 143.00 lb BMI (Body Mass Index) 24.5 kg/m2 12/12/2012 BP Systolic 98 mmHg BP Diastolic 76 mmHg Heart Rate 66 /min Body Temperature 98.4 F Height 64 inches 5'4" Weight 139.50 lb BMI (Body Mass Index) 23.9 kg/m2 10/25/2011 BP Systolic 124 mmHg BP Diastolic 82 mmHg Heart Rate 84 /min Body Temperature 99.3 F O2 % BldC Oximetry 99 % Height 64 inches 5'4" Weight 138.00 lb BMI (Body Mass Index) 23.7 kg/m2 01/09/2011 BP Systolic 110 mmHg BP Diastolic 80 mmHg Heart Rate 80 /min Body Temperature 98.4 F Height 64 inches 5'4" Weight 148.00 lb BMI (Body Mass Index) 25.4 kg/m2 12/09/2010 BP Systolic 118 mmHg BP Diastolic 60 mmHg Heart Rate 80 /min Body Temperature 97.8 F Height 64 inches 5'4" Weight 150.00 lb BMI (Body Mass Index) 25.7 kg/m2 10/12/2010 BP Systolic 120 mmHg BP Diastolic 70 mmHg Heart Rate 72 /min Body Temperature 97.9 F Respiratory Rate 15 /min Height 64 inches 5'4" Weight 148.00 lb BMI (Body Mass Index) 25.4 kg/m2 10/07/2010 BP Systolic 122 mmHg BP Diastolic 72 mmHg Heart Rate 68 /min Height 64 inches 5'4" Weight 148.00 lb BMI (Body Mass Index) 25.4 kg/m2 Results Test Date Test Result H/L Range Note Laboratory test finding 03/29/2017 HCG < 0.60 mIU/mL 1 Magnesium 1.4 mg/dL Low 1.9-2.7 Basic Metabolic Panel 03/29/2017 Sodium 144 mmol/L 133-145 Chloride 118 mmol/L High 101-111 Co2 Carbon Dioxide 23 mmol/L 22-32 Glucose 60 mg/dL Low 70-100 Blood Urea Nitrogen 9 mg/dL 6-24 Creatinine 0.60 mg/dL 0.51-0.95 BUN/Creatinine Ratio 15.0 8-20 Calcium 6.7 mg/dL Low 8.6-10.3 Egfr Non- 108.1 >60 Egfr 139.0 >60 2 Potassium 2.6 mmol/L Low 3.5-5.0 3 Anion Gap 3 mmol/L 2-11 Comp Metabolic Panel 03/29/2017 Sodium 138 mmol/L 133-145 Potassium 4.0 mmol/L 3.5-5.0 Chloride 105 mmol/L 101-111 Co2 Carbon Dioxide 29 mmol/L 22-32 Anion Gap 4 mmol/L 2-11 Glucose 84 mg/dL 70-100 Blood Urea Nitrogen 11 mg/dL 6-24 Creatinine 0.85 mg/dL 0.51-0.95 BUN/Creatinine Ratio 12.9 8-20 Calcium 9.3 mg/dL 8.6-10.3 Total Protein 6.0 g/dL Low 6.4-8.9 Albumin 3.9 g/dL 3.2-5.2 Globulin 2.1 g/dL 2-4 Albumin/Globulin Ratio 1.9 1-3 Total Bilirubin 1.40 mg/dL High 0.2-1.0 Alkaline Phosphatase 9 U/L Low 34-104 Alt 19 U/L 7-52 Ast 17 U/L 13-39 Egfr Non- 72.3 >60 Egfr 93.0 >60 4 CBC No Diff 03/29/2017 White Blood Count 3.2 10^3/uL Low 3.5-10.8 Red Blood Count 3.30 10^6/uL Low 4.0-5.4 Hemoglobin 10.8 g/dL Low 12.0-16.0 Hematocrit 32 % Low 35-47 Mean Corpuscular Volume 98 fL High 80-97 Mean Corpuscular Hemoglobin 33 pg High 27-31 Mean Corpuscular HGB Conc 33 g/dL 31-36 Red Cell Distribution Width 13 % 10.5-15 Platelet Count 162 10^3/uL 150-450 Mean Platelet Volume 8 um3 7.4-10.4 Laboratory test finding 03/29/2017 Magnesium 2.0 mg/dL 1.9-2.7 HCG < 0.60 mIU/mL 5 Laboratory test finding 07/30/2015 Troponin I 0.00 ng/mL <0.03 6 Folic Acid (Folate) > 20.00 ng/mL >3.99 Vitamin B12 585 pg/mL 180-914 7 Erythrocyte Sed Rate 8 mm/Hr 0-14 Lyme Disease Serology Negative Negative 8 [place] (Antinuclear Antibodies) Negative Negative Urinalysis Profile 07/30/2015 Urine Color Yellow Urine Appearance Cloudy Urine Specific [place] 1.004 Low 1.010-1.030 Urine pH 6.0 5-9 Urine Urobilinogen Negative Negative Urine Ketones Negative Negative Urine Protein Negative Negative Urine Leukocytes Negative Negative Urine Blood Negative Negative Urine Nitrite Negative Negative Urine Bilirubin Negative Negative Urine Glucose Negative Negative CBC Auto Diff 07/30/2015 White Blood Count 5.7 10^3/uL 4.8-10.8 Red Blood Count 4.14 10^6/uL 4.0-5.4 Hemoglobin 13.3 g/dL 12.0-16.0 Hematocrit 40 % 35-47 Mean Corpuscular Volume 97 fL 80-97 Mean Corpuscular Hemoglobin 32 pg High 27-31 Mean Corpuscular HGB Conc 33 g/dL 31-36 Red Cell Distribution Width 13 % 10.5-15 Platelet Count 235 10^3/uL 150-450 Mean Platelet Volume 8 um3 7.4-10.4 Abs Neutrophils 3.1 10^3/uL 1.5-7.7 Abs Lymphocytes 1.7 10^3/uL 1.0-4.8 Abs Monocytes 0.4 10^3/uL 0-0.8 Abs Eosinophils 0.4 10^3/uL 0-0.6 Abs Basophils 0.1 10^3/uL 0-0.2 Abs Nucleated RBC 0.01 10^3/uL Granulocyte % 54.3 % 38-83 Lymphocyte % 30.7 % 25-47 Monocyte % 6.4 % 1-9 Eosinophil % 6.2 % High 0-6 Basophil % 2.4 % High 0-2 Nucleated Red Blood Cells % 0.2 Inr/Protime 07/30/2015 Inr 1.07 0.89-1.11 9 Comp Metabolic Panel 07/30/2015 Sodium 137 mmol/L 133-145 Potassium 3.9 mmol/L 3.5-5.0 Chloride 106 mmol/L 101-111 Co2 Carbon Dioxide 24 mmol/L 22-32 Anion Gap 7 mmol/L 2-11 Glucose 90 mg/dL 70-100 Blood Urea Nitrogen 11 mg/dL 6-24 Creatinine 0.89 mg/dL 0.51-0.95 BUN/Creatinine Ratio 12.4 8-20 Calcium 9.4 mg/dL 8.6-10.3 Total Protein 6.7 g/dL 6.4-8.9 Albumin 4.3 g/dL 3.2-5.2 Globulin 2.4 g/dL 2-4 Albumin/Globulin Ratio 1.8 1-3 Total Bilirubin 1.20 mg/dL High 0.2-1.0 Alkaline Phosphatase 12 U/L Low 34-104 Alt 13 U/L 7-52 Ast 19 U/L 13-39 Egfr Non- 69.2 >60 Egfr 89.0 >60 10 Complete Blood Count 05/14/2015 WBC 4.7 x10^3/UL 3.6-9.6 RBC 4.28 x10^6/UL 3.90-5.70 HGB 14.1 g/dL 12.1-17.2 HCT 41 % 36-50 MCV 96.0 fL 82.2-97.4 MCH 33.0 pg 27.6-33.3 MCHC 34.2 g/dL 33.0-35.5 RDW 13.1 % 11.6-13.7 PLT 252 x10^3/UL 150-400 MPV 7.4 fL 7.4-10.4 Gran # 2.5 x10^3/UL 1.5-7.2 Lymph# 1.9 x10^3/UL 0.7-4.9 Moore# 0.3 x10^3/UL 0.1-0.9 Gran % 51.0 % 42.2-75.2 Lymph % 41.4 % 20.5-51.1 Moore% 7.6 % 1.7-9.3 Lipid Profile 05/14/2015 Cholesterol 182 mg/dL 120-200 Triglycerides 58 mg/dL 30-200 HDL Cholesterol 68 mg/dL 30-85 LDL (Calculated) 102 CALC 0-129 VLDL Cholesterol 12 mg/dL 0-50 HDL Risk Factor 2.7 CALC 0.0-4.4 Laboratory test finding 05/14/2015 Vitamin D25 41 30-100 11 Comprehensive Metabolic Prof 05/14/2015 Sodium 137 mEq/L 134-149 Potassium 4.5 mEq/L 3.6-5.5 Chloride 100 mEq/L 94-112 Carbon Dioxide 25 mEq/L 21-32 Glucose 91 mg/dL 70-105 BUN 10 mg/dL 6-26 Creatinine 0.9 mg/dL 0.6-1.4 BUN/Creat Ratio 11.1 CALC 8.0-36.0 Calcium 9.5 mg/dL 8.6-10.2 Total Protein 7.1 g/dL 6.4-8.3 Albumin 4.4 g/dL 3.8-5.5 Globulin 2.7 g/dL 2.0-4.8 A/G Ratio 1.6 CALC 0.6-2.3 Alk. Phosphatase 16 U/L Low 30-110 12 Alt (SGPT) 16 U/L 7-35 Ast (Sgot) 21 U/L 5-34 Total Bilirubin 1.6 mg/dL High 0.2-1.3 13 GFR Non- >60 ml/min/1.73m^ >=60 GFR >60 ml/min/1.73m^ >=60 Laboratory test finding 05/14/2015 TSH 1.79 mIU/L 0.50-6.00 Free T4 1.12 ng/dL 0.75-1.54 Laboratory test finding 12/16/2014 Quickstrep NEG Negative Throat - Beta Strep Fma NEG@48HRS Laboratory test 04/04/2014 , Serum NEGATIVE finding Thin Prep cytology [facility] [place] 03/06/2014 Cy RUN DATE: <SEE NOTE> HPV High Risk 03/06/2014 Human Papillomavirus See Comment 15 Source HPV High Risk Type 16, PCR Negative Negative HPV High Risk Type 18, PCR Negative Negative HPV Other Risk types Negative Negative 16 Comp Metabolic Panel 02/24/2013 Sodium 137 mmol/L 133-145 Potassium 4.2 mmol/L 3.5-5.0 Chloride 106 mmol/L 101-111 Co2 Carbon Dioxide 24.0 mmol/L 22-32 Anion Gap 7.0 mmol/L 2-11 Glucose 87 mg/dL 70-100 Blood Urea Nitrogen 12 mg/dL 6-24 Creatinine 0.80 mg/dL 0.50-1.40 BUN/Creatinine Ratio 15.0 8-20 Calcium 8.8 mg/dL 8.1-9.9 Total Protein 5.7 g/dL Low 6.2-8.1 Albumin 3.5 g/dL Low 3.6-5.4 Globulin 2.2 g/dL 2-4 Albumin/Globulin Ratio 1.6 1-3 Total Bilirubin 1.1 mg/dL 0.4-1.5 Alkaline Phosphatase 12 U/L Low 30-110 Alt 17 U/L 14-54 Ast 21 U/L 12-42 Egfr Non- 79.0 >60 Egfr 101.7 >60 17 Laboratory test 02/24/2013 Beta HCG Quantitative 2948.0 MIU/ML High 0.0- 5.0 18 finding Type & Screen 02/24/2013 Patient Blood Type A Positive Antibody Screen NEGATIVE CBC Auto Diff 02/24/2013 White Blood Count 10.2 10^3/uL 4.8-10.8 Red Blood Count 3.70 10^6/uL Low 4.0-5.4 Hemoglobin 12.4 g/dL 12.0-16.0 Hematocrit 35 % 35-47 Mean Corpuscular Volume 95 fL 80-97 Mean Corpuscular Hemoglobin 33 pg High 27-31 Mean Corpuscular HGB Conc 35 g/dL 31-36 Red Cell Distribution Width 13 % 10.5-15 Platelet Count 176 10^3/uL 150-450 Mean Platelet Volume 8 um3 7.4-10.4 Abs Neutrophils 8.3 10^3/uL High 1.5-7.7 Abs Lymphocytes 1.4 10^3/uL 1.0-4.8 Abs Monocytes 0.5 10^3/uL 0-0.8 Abs Eosinophils 0.1 10^3/uL 0-0.6 Abs Basophils 0.1 10^3/uL 0-0.2 Abs Nucleated RBC 0.01 10^3/uL Granulocyte % 80.7 % 38-83 Lymphocyte % 13.8 % Low 25-47 Monocyte % 4.4 % 1-9 Eosinophil % 0.6 % 0-6 Basophil % 0.5 % 0-2 Nucleated Red Blood Cells % 0.1 GC/Chlamydia Amplified Rna 01/17/2013 GC/Chlamydia Rna (SEE NOTE) 19 Laboratory test finding 12/12/2012 Quickstrep neg Negative CBC No Diff 06/17/2012 White Blood Count 6.9 CUMM 4.8-10.8 Red Cell Count 4.22 CUMM 4.2-5.4 Hemoglobin 14.1 g/dL 12.0-16.0 Hematocrit 42 % 35-47 Mean Corpuscular Volume 98 um3 High 79-97 Mean Corpuscular Hemoglob 33 pg High 27-31 Mean Corpuscular HGB Cone 34 g/dL 32-36 Redcell Distribution WDTH 13 % 10.5-15 Platelet Count 220 CUMM 150-450 Mean Platelet Volume 9.2 um3 7.4-10.4 Comp Metabolic Panel 06/17/2012 Sodium 135 mmol/L 135-145 Potassium 4.2 mmol/L 3.5-5.0 Chloride 102 mmol/L 101-111 Co2 (Carbon Dioxide) 28.0 mmol/L 22-32 Anion Gap 5.0 mmol/L 2-11 20 Glucose 82 mg/dL 70-100 BUN 7 mg/dL 6-24 Creatinine 0.7 mg/dL 0.50-1.40 One Over Creatinine 1.42 BUN/Creatinine Ratio 10.0 8-20 Calcium 9.5 mg/dL 8.1-9.9 Total Protein 6.4 GM/DL 6.2-8.1 Albumin 4.1 GM/DL 3.6-5.4 Globulin 2.3 GM/DL 2-4 Albumin/Globulin Ratio 1.8 1-3 Bilirubin Total 1.8 mg/dL High 0.4-1.5 21 Alkaline Phosphatase 5 U/L Low 30-110 Alt (SGPT) 17 U/L 14-54 Ast (Sgot) 23 U/L 12-42 eGFR Non- 92.7 > 60 eGFR 119.2 > 60 22 Laboratory test finding 06/17/2012 (HCG) Serum NEGATIVE Negative 23 Laboratory test finding 01/10/2011 B12 714 pg/mL 230-1050 Comprehensive Metabolic Prof 01/10/2011 Albumin 4.6 g/dL 3.8-5.5 Alk. Phos. 13 U/L Low 30-110 24 Alt (SGPT) 14 U/L 7-35 Ast (Sgot) 18 U/L 5-34 BUN 17 mg/dL 6-26 Calcium 9.7 mg/dL 8.6-10.2 Chloride 104 mEq/L 94-112 Creatinine 0.8 mg/dL 0.6-1.4 Carbon Dioxide 25 mEq/L 21-32 Glucose 88 mg/dL 70-105 Sodium 139 mEq/L 134-149 Total Bilirubin 1.2 mg/dL 0.2-1.3 Total Protein 7.1 g/dL 6.3-8.1 Potassium 4.0 mEq/L 3.6-5.5 Globulin 2.6 g/dL 2.0-4.8 A/G Ratio 1.8 Calc 0.6-2.2 BUN/Creat Ratio 20.0 Calc 8.0-36.0 Laboratory test finding 01/10/2011 Free T3 2.57 pg/mL 2.00-4.90 TSH 2.21 mIU/L 0.50-6.00 CBC Electronic (a) 01/10/2011 WBC 5.4 3.6-9.6 RBC 4.35 3.90-5.70 Hemoglobin (Fma/CMC/CTX) 14.1 g/dL 12.1 - 17.2 Hematocrit (Fma/CMC/CTX) 40.6 % 36.1 - 50.3 Platelets 215 10^3/ul 150-400 Lymph% 33.2 20.5-51.1 Mixed% 7.7 Neutrophils % 59.1 Mean Corpuscular Vol 93.3 82.2-97.4 Mean Corpuscular Hemoglobin 32.4 27.6-33.3 Mean Corpuscular Hemo Concen 34.7 32.0-36.0 RDW 12.2 11.6-13.7 Mean Platelet Volume 10.2 6.5-11.0 Lyme Igg/M W/RFX West 01/10/2011 Lyme IgG/IgM Ab <0.91 index 0.00- 0.90 25 Lyme Disease Ab, Quant, IgM <0.91 index 0.00-0.90 26 1 <5.0 Negative 5.0 - 25.0 Indeterminate (Repeat testing recommended after 72 hours) >25.0 Positive Perimenopausal women can display HCG levels of up to 20 mIU/mL 2 Because ethnic data is not always readily available, this report includes an eGFR for both -Americans and non- Americans. The National Kidney Disease Education Program (NKDEP) does not endorse the use of the MDRD equation for patients that are not between the ages of 18 and 70, are , have extremes of body size, muscle mass, or nutritional status, or are non- or non-. According to the National Kidney Foundation, irrespective of diagnosis, the stage of the disease is based on the level of kidney function: Stage Description GFR(mL/min/1.73 m(2)) 1 Kidney damage with normal or decreased GFR 90 2 Kidney damage with mild decrease in GFR 60-89 3 Moderate decrease in GFR 30-59 4 Severe decrease in GFR 15-29 5 Kidney failure <15 (or dialysis) 3 Critical Result K:2.6 Called to [id number] at: 11:05:47 by:[email or web address] Read back by:[email or web address] 4 Because ethnic data is not always readily available, this report includes an eGFR for both -Americans and non- Americans. The National Kidney Disease Education Program (NKDEP) does not endorse the use of the MDRD equation for patients that are not between the ages of 18 and 70, are , have extremes of body size, muscle mass, or nutritional status, or are non- or non-. According to the National Kidney Foundation, irrespective of diagnosis, the stage of the disease is based on the level of kidney function: Stage Description GFR(mL/min/1.73 m(2)) 1 Kidney damage with normal or decreased GFR 90 2 Kidney damage with mild decrease in GFR 60-89 3 Moderate decrease in GFR 30-59 4 Severe decrease in GFR 15-29 5 Kidney failure <15 (or dialysis) 5 <5.0 Negative 5.0 - 25.0 Indeterminate (Repeat testing recommended after 72 hours) >25.0 Positive Perimenopausal women can display HCG levels of up to 20 mIU/mL 6 Reference Range and Interpretation: TnI (ng/mL) Interpretation Less Than 0.03 ng/mL Not supportive of diagnosis of MA 0.03 - 0.50 ng/mL Indeterminate: suggest serial studies if clinically indicated. Greater than 0.5 ng/mL Consistent with diagnosis of MA 7 Normal Range 180 to 914 Indeterminate Range 145 to 180 Deficient Range <145 8 Serologic response to B. burgdorferi infection is not detected, but cannot rule out early infection during which low or undetectable antibody levels to B. burgdorferi may be present. If clinically indicated, a new serum specimen should be submitted in 7-14 days. Test Performed by: [place] [address] [employer]gr[employer] Internship: Yoseph Raza II, M.D., Ph.D. 9 Effective immediately, due to a laboratory mean normal Protime change, the reference range for the INR has changed. 10 Because ethnic data is not always readily available, this report includes an eGFR for both -Americans and non- Americans. The National Kidney Disease Education Program (NKDEP) does not endorse the use of the MDRD equation for patients that are not between the ages of 18 and 70, are , have extremes of body size, muscle mass, or nutritional status, or are non- or non-. According to the National Kidney Foundation, irrespective of diagnosis, the stage of the disease is based on the level of kidney function: Stage Description GFR(mL/min/1.73 m(2)) 1 Kidney damage with normal or decreased GFR 90 2 Kidney damage with mild decrease in GFR 60-89 3 Moderate decrease in GFR 30-59 4 Severe decrease in GFR 15-29 5 Kidney failure <15 (or dialysis) 11 FASTING 12 RESULTS VERIFIED BY REPEAT ANALYSIS 13 RESULTS VERIFIED BY REPEAT ANALYSIS 14 RUN DATE: 03/09/14 [facility] LAB LIVE PAGE 1 RUN TIME: [address] [place], [place] [address] Specimen Inquiry Name: DIGNA MERAZ : [address]: Kandi Crockett NP Acct: [id number] Unit: [id number] AGE: 43 Location: [facility] Re03/06/14 SEX: F Status: REG REF SPEC: [id number] MANDEEP: 03/06/14-[address]: Kandi Crockett OVERLOCKER REQ: [id number] RECD: 03/06/14 STATUS: EDNA BISHOP DR: Bell Poe OVERLOCKER _ ORDERED: IMAGE ANALYSIS, HPV/Thin Prep FINAL DIAGNOSIS Negative for Intraepithelial lesion or Malignancy COMMENTS: Specimen sent to [facility] in [place], [place] on 03/09/14 by [id number] at 1219. Results will be reported separately. A. Ectocervical/Endocervical Specimen Adequacy: Satisfactory of evaluation Transformation zone component identified Patient Information: HPV: High risk HPV DNA testing regardless of pap results. Actual Specimen Date: 03/06/14 Last Menstrual Date: 02/18/14 Cautery: N IUD: N Lesion, grossly demonstrate: N Radiation Y/N? N ?: N Post Menopausal?: N Hysterectomy?: N Previous Abnormal Pap Smears?:N Signed (signature on file) SKYLER Cannon (ASCP) 03/09/14 1229 This Pap test was evaluated with the assistance of the Feedbackp Test Imaging System. Due to cytologic findings at the ship engineer microscope, comprehensive manual rescreening by a Marketing Summer Intern may be required. The Pap Smear is a screening test designed to aid in the detection of premalignant and malignant conditions of the uterine cervix. It is not a diagnostic procedure and should not be used as the sole means of detecting cervical cancer. Both false- positive and false- negative reports do occur. Depending on your risk status, a Pap smear shoudl be obtained and evaluated every 1-3 years. END OF REPORT * ML=Testing performed at Main Lab DEPARTMENT OF PATHOLOGY, [address] [place] [address] Vineet Garza M.D. Director [facility] # [id number] RUN DATE: 03/09/14 [facility] LAB LIVE PAGE 1 RUN TIME: [address] [place] [id number] Specimen Inquiry Patient: DIGNA MERAZ [id number] (Continued) 15 RESULT: Ectocervical/Endocervical 16 The following Other High Risk HPV types were not detected: 31, 33, 35, 39, 45, 51, 52, 56, 58, 59, 66, and 68 Test Performed by: [place] [address] [employer]gr[employer] Internship: Arjun Faye III, M.D. 17 Because ethnic data is not always readily available, this report includes an eGFR for both -Americans and non- Americans. The National Kidney Disease Education Program (NKDEP) does not endorse the use of the MDRD equation for patients that are not between the ages of 18 and 70, are , have extremes of body size, muscle mass, or nutritional status, or are non- or non-. According to the National Kidney Foundation, irrespective of diagnosis, the stage of the disease is based on the level of kidney function: Stage Description GFR(mL/min/1.73 m(2)) 1 Kidney damage with normal or decreased GFR 90 2 Kidney damage with mild decrease in GFR 60-89 3 Moderate decrease in GFR 30-59 4 Severe decrease in GFR 15-29 5 Kidney failure <15 (or dialysis) 18 Males: < 5.0 miu/ml Non females < 5.0 miu/ml Approx gestational age approx HCG range 0-1 week < 5.0-50 1-2 weeks 50-500 2-3 weeks 100-5000 3-4 weeks 500-10,000 1-2 months 10,000-200,000 2-3 months 15,000-100,000 Please note: The intended use of this assay is the quantitative determination of HCG in human serum or plasma for the early detection of . These assays should not be used to diagnose any condition unrelated to . If an HCG level is inconsistent with, or unsupported by, clinical evidence, results should be confirmed by an alternate HCG method. 19 RUN DATE: 01/21/13 [facility] LAB LIVE PAGE 1 RUN TIME: [address] [place] [id number] Specimen Inquiry Name: DIGNA MERAZ : [address]: Kandi Crockett NP Acct: [id number] Unit: [id number] AGE: 42 Location: [facility] Re01/17/13 SEX: F Status: REG REF SPEC: [id number] MANDEEP: 01/17/13-[address]: Kandi Crockett NP REQ: [id number] RECD: 01/17/13 STATUS: MARIAN BISHOP DR: Bell Poe OVERLOCKER _ SOURCE: [facility]: ORDERED: GC/Chlam RNA Procedure Result Verified Site Chlamydia Trachomatis RNA Final 01/21/13- 1318 ML NEGATIVE for Chlamydia trachomatis rRNA GC (N. gonorrhoeae) RNA Final 01/21/13- 1318 ML NEGATIVE for Neisseria gonorrhoeae rRNA A negative result does not preclude the presence of a C. trachomatis or N. gonorrhoeae infection because results are dependent on adequate specimen collection, absence of inhibitors, and sufficient rRNA to be detected. Test results may be affected by improper specimen collection, improper storage, technical error, or specimen mixup. Limitations of the Procedure: The Aptima Combo 2 Assay is not intended for the evaluation of suspected sexual abuse or for other medico-legal indications. For those patients for whom a false positive result may have adverse psychosocial impact, the [facility] recommends retesting by a method using an alternate technology. Therapeutic failure or success cannot be determined with the Aptima Combo 2 Assay since nucleic acid may persist following appropriate antimicrobial therapy. Results from the Aptima Combo 2 Assay should be interpreted in conjunction with other laboratory and clinical data available to the clinican. Performance characteristics for detecting C. trachomatis and CONTINUED ON NEXT PAGE * ML=Testing performed at Main Lab DEPARTMENT OF PATHOLOGY, [facility] [place] [employer] [place] [address] Vineet Garza M.D. Director [facility] Permit #[id number] RUN DATE: 01/21/13 [facility] LAB LIVE PAGE 2 RUN TIME: 1319 [facility] [place] [employer] [place], [place] [address] Specimen Inquiry Patient: DIGNA MERAZ [id number] (Continued) Specimen: [id number] Collected: 01/17/13 Received: 01/17/13-1655 (Continued) Procedure Result Verified Site GC (N. gonorrhoeae) RNA Final (continued) 01/21/13- 1318 N. gonorrhoeae are derived from high prevalence populations. Positive results in low prevalence populations should be interpreted carefully with the understanding that the likelihood of a false positive may be higher than a true positive. END OF REPORT * ML=Testing performed at Main Lab DEPARTMENT OF PATHOLOGY, [address] [place] [address] Vineet Garza M.D. Director [facility] Permit #[id number] 20 Anion gap measurement may be of limited value in the presence of any alkalosis, especially in a combined acid base disorder. . 21 A metabolite of Naproxen, O-desmethylnaproxen, has been shown to interfere with the [place] method for measuring total bilirubin. Samples from patients who have taken Naproxen have shown spurious elevation in total bilirubin levels. 22 Because ethnic data is not always readily available, this report includes an eGFR for both -Americans and non- Americans. The National Kidney Disease Education Program (NKDEP) does not endorse the use of the MDRD equation for patients that are not between the ages of 18 and 70, are , have extremes of body size, muscle mass, or nutritional status, or are non- or non-. According to the National Kidney Foundation, irrespective of diagnosis, the stage of the disease is based on the level of kidney function: Stage Description GFR(mL/min/1.73 m(2)) 1 Kidney damage with normal or decreased GFR 90 2 Kidney damage with mild decrease in GFR 60-89 3 Moderate decrease in GFR 30-59 4 Severe decrease in GFR 15-29 5 Kidney failure <15 (or dialysis) 23 If is still suspected, please repeat test after 48 to 72 hours. . This test detects intact HCG only and is indicated for the early detection of . 24 result george'd 25 Negative <0.91 Equivocal 0.91 - 1.09 Positive >1.09 Note: The CDC currently advises that Western blot testing be performed following all equivocal or positive EIA results. Final diagnosis should include appropriate clinical findings and a positive EIA which is also positive by Western blot. 26 Negative <0.91 Equivocal 0.91 - 1.09 Positive >1.09 . Note: IgM levels may peak at 3-6 weeks post infection, then gradually decline. FDA currently advises that Western Blot testing be performed following all equivocal or positive EIA results. Final diagnosis should include appropriate clinical findings and a positive EIA which is also positive by Western Blot. Procedures Date CPT Code Description Status 09/11/2016 Mammogram Completed 09/01/2016 Mammogram Completed 07/01/2015 Mammogram Completed 03/20/2014 Mammogram Completed 08/14/2012 Mammogram Completed 08/22/2011 Mammogram Completed Encounters Type Date Location Provider CPT E/M Dx Office Visit 11/30/2016 3:00p [facility] Latoya Mancini 69776 G95.0 M.D. Office Visit 06/29/2016 2:00p [facility] Office Latoya Mancini, 47759 Z00.00 M.DStephanie F90.1 M54.5 N80.0 E55.9 Z12.31 Office Visit 02/09/2016 1:00p [facility] Office Latoya Mancini M.D. 75984 F90.1 M54.5 N80.0 Office Visit 08/10/2015 2:40p [facility] Office Clau Gonzalez M.D. 53299 N80.0 R10.31 Office Visit 05/11/2015 2:00p [facility] Latoya Mancini M.D. 40844 V70.0 268.9 617.9 Office Visit 01/01/2015 11:00a [facility] Office Deandre Singh M.D. 39890 461.8 Office Visit 12/16/2014 11:15a [facility] Anju Patel, PATY 84557 462 Office Visit 04/04/2014 11:30a Main Office Bell Poe [facility] 34256 339.00 V72.41 Office Visit 06/27/2013 3:00p Main Office Deandre Singh M.D. 14202 339.00 Office Visit 12/12/2012 5:30p Main Office Tracey Contreras [facility] 40068 461.8 Office Visit 10/25/2011 7:50p Main Office Effie Oakes M.D. 59503 616.10 382.9 Office Visit 01/09/2011 7:45p Main Office Bell Poe [facility] 41006 780.79 Office Visit 12/09/2010 10:45a Main Office Bell [facility]oe [facility] 37624 346.90 Office Visit 10/12/2010 2:00p [facility] Office Tracey Tyson 73406 306.3 MStephanieDStephanie Office Visit 10/07/2010 9:00a Main Office Bell Poe [facility] 44771 314.01 110.5 626.4 Plan of Care 08/02/2017 - Latoya Mancini M.D.Z00.01 Encounter for general adult medical exam w abnormal findingsComments:You are in excellent general health. I recommend regular physical exams with attention to good nutrition and exercise, eye exams every other year, and dental exams twice yearly. Goals: 2 fresh fruits daily 3 helpings of fresh green and multicolored vegetables Eat from the whole color spectrum. 40-60 Oz water daily MOVE YOUR BODY. Bodies were made to be moved. exercise 30 minutes at least 4-5 times yezhwnG94.31 Encntr screen mammogram for malignant neoplasm of dythvzO94.0 Syringomyelia and syringobulbiaComments:You are doing remarkably well even with your conditions.F90.1 Attn-defct hyperactivity disorder, predom hyperactive typeG89.4 Chronic pain syndromeComments:due to syringomyelia, fibroids and endometriosis. continue with medical marijuana. use the hydrocodone as necessary. I would ask Kandi Crockett re: surgery for endometriosis.AllComments :Medication Management Patient Understands medications she's taking? Yes No Are there Barriers to Adherence? Yes No Has the patient been asked about herbal supplements and therapies, and OTC meds? Yes No
== END 2017-08-27 12:40 | disposition home or self-care (01) ==
LOC: UCEAST 09:50
DX: K56.41 Fecal impaction (principal)
CPT/HCPCS: 74020; 81003; 99212; A9270-GY; G0463

== ENCOUNTER 2018-01-18 10:40 | Emergency (ER) | payer OTHER ==
--- OUTSIDE RECORDS SUMMARY | 2018-01-18 11:20 | XMS REPORT ---
:1970 External Reference #:[id number] Author Organization [facility] Address [address] [place] [address] Phone [phone] Care Team Providers Name Role Phone Latoya Mancini Care Team Information Spray Dyer Unavailable Latoya Mancini Primary Care Physician Unavailable Payers Type Date Identification Payment Subscriber Numbers Provider Health Maintenance Effective: Policy Number: [employer] Nap Digna Meraz [facility] ([facility]) 05/25/2010 [id number] Group Number: [id number] [address] Group Name: [place] [address] PayID: [id number] Problems Date Description Provider Status Onset: 08/10/2015 [...] Brother anxiety Second Brother anxiety. Paternal Grandfather [place] in his late 60s Maternal Grandmother in her 80s- old age Paternal Uncle 2 uncles with mental illness Maternal Aunt 2 aunts - mental illness Social History Type Date Description Comments Education Highest level of education completed is a doctorate speech language Pathology, [employer]. Living Situation Lives with spouse Diet Diet [...] Form Strength Qnty SIG Indications Ordering Provider Physical Therapy 01/11 Active evaluate M25.552 Latoya Medel and treat Addis left hip M.DStephanie pain Ritalin 08/25 Active Tablets 10mg 60tab 1 by mouth F90.9 Latoya Medel /2012 s twice a day Noe Mancini Multivitamins Active Capsules 1 po qd Unknown /0000 Fish Oil Active Capsules 1 po qd Unknown /0000 Ibuprofen Active Tablets 800mg prn Unknown /0000 Phenazopyridine Active Tablets 200mg take one by Unknown HCL /0000 mouth 3 times daily as needed for pain Culturelle Active Capsules Unknown Digestive Health /0000 Probiotic Vitamin D3 Super Active Capsules 2000Unit 1 by mouth Unknown Strength /0000 every day Vitamin B Complex Active Tablets 1 by mouth Unknown /0000 every day Hydrocodone-Aceta 11/30 Hx Tablets 5-325mg 60tab 1-2 by G95.0 Latoya Medel min s mouth 4 Addis, - times a day M.D. 01/11 as needed /2017 Physical Therapy 02/17 Hx evaluate Latoya Medel /2015 and treat. Brian Mancini ian hip and M.D. 06/29 back pain /2015 [facility] fax: Augmentin 01/01 Hx Tablets 500-125mg 20tab 1 by mouth Deandre Lang s twice a day Samantha, - With Food M.D. 05/11 Zofran 04/04 Hx Tablets 4mg 45tab 1-2 po 339.00 s q4-6h prn Deepika, - RIFFLER TENDER 01/01 Hydrocodone/Aceta 04/04 Hx Tablets 5-325mg 30tab 1 po tid 339.00 Bell s prn Deepika, - RIFFLER TENDER 01/01 Vicodin 06/27 Hx Tablets 5-300mg 30tab 1 po q4hrs Deandre JStephanie s prn dt Samantha, - call M.DStephanie 04/04 Verapamil HCL ER 06/27 Hx Caps ER 120mg 30cap take 1 Deandre JStephanie 24HR s daily for Darbyaprilprabhjot, - prevention M.D. 04/04 Biaxin 12/12 Hx Tablets 500mg 20tab take one 461.8 s tablet po Diane, - bid x 10 RIFFLER TENDER 06/27 days all medication Augmentin 10/25 Hx Tablets 500-125mg 14tab one tab po 382.9 Effie M. s bid for 7 , - days M.D. 12/11 Antipyrine/Benzoc 10/25 Hx Solution 54-14mg/m 15ml 4 gtts 382.9 [facility]. hallie l affected [facility], - ear qid prn M.D. 12/11 Diflucan 10/25 Hx Tablets 150mg 2tabs 1 po times 616.10 Effie M. January, - repeat in 4 M.D. 12/11 days symptoms persist Metrolotion 10/12 Hx Lotion 0.75% apply 2 times daily von - to clean Felten, 10/25 face M.D. 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, - RIFFLER TENDER 06/27 Loprox 10/07 Hx Gel 0.77% 60gm apply 110.5 bid-tid Deepika, - RIFFLER TENDER 10/25 Ibuprofen 00/00 Hx Tablets 1 po up to Unknown /0000 4 times a - day for 12/11 Cyclobenzaprine Hx Tablets 10mg prn Unknown - 02/08 Vaginal Valium 00 Hx 5mg Unknown - 08/02 Vital Signs Date Vital Result Comment 01/11/2018 BP Systolic 122 mmHg BP Diastolic 70 mmHg Heart Rate 72 /min Body Temperature 97.9 F Respiratory Rate 18 /min Height 64 inches 5'4" Weight 138.00 lb BMI (Body Mass Index) 23.7 kg/m2 08/02/2017 BP Systolic 120 mmHg BP Diastolic [...] Test Date Test Result H/L Range Note Ua - Micro (Fma) 01/11/2018 Appearance clear Color yellow Glucose, Urine (Fma/CMC/CTX) neg Bilirubin neg Ketones neg SP Grav <=1.005 Blood small PH 5.5 Protein neg Urobil 0.2 Nitrite neg Leukocytes (Fma/CMC/Centrex) trace WBC (Fma,Centrex) 5-8 RBC 1-3 Mucus - /Lpf Epith few /Lpf Bacteria tr /Hpf Poc Urinalysis 08/27/2017 Poc Glucose, Urine Negative Negative Poc Bilirubin, Urine Negative Negative Poc Ketone, Urine Negative Negative Poc Specific [place], Urine <=1.005 Low 1.010-1.030 Poc Blood, Urine Negative Negative Poc pH, Urine 6.0 5-9 Poc Protein, Urine Negative Negative Poc Urobilinogen, Urine 0.2 Negative Poc Nitrite, Urine Negative Negative Poc Leukocytes, Urine Negative Negative Poc Color, Urine Yellow Poc Clarity, Urine Clear 1 Comp Metabolic Panel 03/29/2017 Sodium 138 mmol/L [...] Egfr Non- 72.3 >60 Egfr 93.0 >60 2 Laboratory test finding 03/29/2017 Magnesium 2.0 mg/dL 1.9-2.7 HCG < 0.60 mIU/mL 3 CBC No Diff 03/29/2017 White Blood Count [...] 150-450 Mean Platelet Volume 8 um3 7.4-10.4 Basic Metabolic Panel 03/29/2017 Sodium 144 mmol/L 133-145 Chloride 118 mmol/L High 101-111 Co2 Carbon Dioxide 23 mmol/L 22-32 Glucose 60 mg/dL Low 70-100 Blood Urea Nitrogen 9 mg/dL 6-24 Creatinine 0.60 mg/dL 0.51-0.95 BUN/Creatinine Ratio 15.0 8-20 Calcium 6.7 mg/dL Low 8.6-10.3 Egfr Non- 108.1 >60 Egfr 139.0 >60 4 Potassium 2.6 mmol/L Low 3.5-5.0 5 Anion Gap 3 mmol/L 2-11 Laboratory test finding 03/29/2017 HCG < 0.60 mIU/mL 6 Magnesium 1.4 mg/dL Low 1.9-2.7 Urinalysis Profile 07/30/2015 Urine Color Yellow Urine Appearance Cloudy Urine Specific [place] 1.004 Low 1.010-1.030 Urine pH 6.0 5-9 [...] % 0.2 Inr/Protime 07/30/2015 Inr 1.07 0.89-1.11 7 Comp Metabolic Panel 07/30/2015 Sodium 137 mmol/L [...] Egfr Non- 69.2 >60 Egfr 89.0 >60 8 Laboratory test finding 07/30/2015 Troponin I 0.00 ng/mL <0.03 9 Folic Acid (Folate) > 20.00 ng/mL >3.99 Vitamin B12 585 pg/mL 180-914 10 Erythrocyte Sed Rate 8 mm/Hr 0-14 Lyme Disease Serology Negative Negative 11 Albertina (Antinuclear Antibodies) Negative Negative Complete Blood Count 05/14/2015 WBC 4.7 x10^3/UL 3.6-9.6 RBC 4.28 x10^6/UL 3.90-5.70 HGB 14.1 g/dL 12.1-17.2 HCT 41 % 36-50 MCV 96.0 fL 82.2-97.4 MCH 33.0 pg 27.6-33.3 MCHC 34.2 g/dL 33.0-35.5 RDW 13.1 % 11.6-13.7 PLT 252 x10^3/UL 150-400 MPV 7.4 fL 7.4-10.4 Gran # 2.5 x10^3/UL 1.5-7.2 Lymph# 1.9 x10^3/UL 0.7-4.9 [place]# 0.3 x10^3/UL 0.1-0.9 Gran % 51.0 % 42.2-75.2 Lymph % 41.4 % 20.5-51.1 [place]% 7.6 % 1.7-9.3 Lipid Profile 05/14/2015 Cholesterol 182 mg/dL 120-200 Triglycerides 58 mg/dL 30-200 HDL Cholesterol 68 mg/dL 30-85 LDL (Calculated) 102 CALC 0-129 VLDL Cholesterol 12 mg/dL 0-50 HDL Risk Factor 2.7 CALC 0.0-4.4 Laboratory test finding 05/14/2015 Vitamin D25 41 30-100 12 Comprehensive Metabolic Prof 05/14/2015 Sodium 137 mEq/L [...] 0.6-2.3 Alk. Phosphatase 16 U/L Low 30-110 13 Alt (SGPT) 16 U/L 7-35 Ast (Sgot) 21 U/L 5-34 Total Bilirubin 1.6 mg/dL High 0.2-1.3 14 GFR Non- >60 ml/min/1.73m^ >=60 GFR >60 ml/min/1.73m^ >=60 Laboratory test finding 05/14/2015 TSH 1.79 mIU/L 0.50-6.00 Free T4 1.12 ng/dL 0.75-1.54 Laboratory test finding 12/16/2014 Quickstrep NEG Negative Throat - Beta Strep Fma NEG@48HRS Laboratory test finding 04/04/2014 , Serum NEGATIVE HPV High Risk 03/06/2014 Human Papillomavirus Source See Comment 15 HPV High Risk Type 16, PCR Negative Negative HPV High Risk Type 18, PCR Negative Negative HPV Other Risk types Negative Negative 16 Thin Prep cytology [facility] 03/06/2014 Cy RUN DATE: 03/09/ <SEE 17 NOTE> Type & Screen 02/24/2013 Patient Blood Type A Positive Antibody Screen NEGATIVE Comp Metabolic Panel 02/24/2013 Sodium 137 mmol/L [...] Egfr Non- 79.0 >60 Egfr 101.7 >60 18 Laboratory test 02/24/2013 Beta HCG Quantitative 2948.0 MIU/ML High 0.0- 5.0 19 finding CBC Auto Diff 02/24/2013 White Blood Count [...] Amplified Rna 01/17/2013 GC/Chlamydia Rna (SEE NOTE) 20 Laboratory test finding 12/12/2012 Quickstrep neg Negative [...] mmol/L 22-32 Anion Gap 5.0 mmol/L 2-11 21 Glucose 82 mg/dL 70-100 BUN 7 mg/dL 6-24 Creatinine 0.7 mg/dL 0.50-1.40 One Over Creatinine 1.42 BUN/Creatinine Ratio 10.0 8-20 Calcium 9.5 mg/dL 8.1-9.9 Total Protein 6.4 GM/DL 6.2-8.1 Albumin 4.1 GM/DL 3.6-5.4 Globulin 2.3 GM/DL 2-4 Albumin/Globulin Ratio 1.8 1-3 Bilirubin Total 1.8 mg/dL High 0.4-1.5 22 Alkaline Phosphatase 5 U/L Low 30-110 Alt (SGPT) 17 U/L 14-54 Ast (Sgot) 23 U/L 12-42 eGFR Non- 92.7 > 60 eGFR 119.2 > 60 23 Laboratory test finding 06/17/2012 (HCG) Serum NEGATIVE Negative 24 Laboratory test finding 01/10/2011 B12 714 pg/mL 230-1050 Comprehensive Metabolic Prof 01/10/2011 Albumin 4.6 g/dL 3.8-5.5 Alk. Phos. 13 U/L Low 30-110 25 Alt (SGPT) 14 U/L 7-35 Ast (Sgot) [...] 2.00-4.90 TSH 2.21 mIU/L 0.50-6.00 CBC Electronic (Fma) 01/10/2011 WBC 5.4 3.6-9.6 RBC 4.35 3.90-5.70 [...] Lyme IgG/IgM Ab <0.91 index 0.00- 0.90 26 Lyme Disease Ab, Quant, IgM <0.91 index 0.00-0.90 27 1 Refinery Superintendent: [id number] 2 Because ethnic data is not always [...] 5 Kidney failure <15 (or dialysis) 3 <5.0 Negative 5.0 - 25.0 Indeterminate (Repeat testing recommended after 72 hours) >25.0 Positive Perimenopausal women can display HCG levels of up to 20 mIU/mL 4 Because ethnic data is not always [...] 5 Kidney failure <15 (or dialysis) 5 Critical Result K:2.6 Called to [id number] at: 11:05:47 by:[id number] Read back by:[id number] 6 <5.0 Negative 5.0 - 25.0 Indeterminate (Repeat testing recommended after 72 hours) >25.0 Positive Perimenopausal women can display HCG levels of up to 20 mIU/mL 7 Effective immediately, due to a laboratory mean normal Protime change, the reference range for the INR has changed. 8 Because ethnic data is not always readily [...] 15-29 5 Kidney failure <15 (or dialysis) 9 Reference Range and Interpretation: TnI (ng/mL) Interpretation Less Than 0.03 ng/mL Not supportive of diagnosis of CO 0.03 - 0.50 ng/mL Indeterminate: suggest serial studies if clinically indicated. Greater than 0.5 ng/mL Consistent with diagnosis of CO 10 Normal Range 180 to 914 Indeterminate Range 145 to 180 Deficient Range <145 11 Serologic response to B. burgdorferi infection is not detected, but cannot rule out early infection during which low or undetectable antibody levels to B. burgdorferi may be present. If clinically indicated, a new serum specimen should be submitted in 7-14 days. Test Performed by: [facility] [address] [place] [address] Crew Car Driver: Yoseph Raza II, M.D., Ph.D. 12 FASTING 13 RESULTS VERIFIED BY REPEAT ANALYSIS 14 RESULTS VERIFIED BY REPEAT ANALYSIS 15 RESULT: Ectocervical/Endocervical 16 The following Other High Risk HPV types were not detected: 31, 33, 35, 39, 45, 51, 52, 56, 58, 59, 66, and 68 Test Performed by: [facility] [address] [place] [address] Crew Car Driver: Arjun Faye III, M.D. 17 RUN DATE: 03/09/14 [facility] LAB LIVE PAGE 1 RUN TIME: [address] [place] [address] Specimen Inquiry Name: GUSDIGNA : [address]: Kandi Crockett NP Acct: [id number] Unit: [id number] AGE: 43 Location: [facility] Re03/06/14 SEX: F Status: REG REF SPEC: [id number] MANDEEP: 03/06/14-[address] [facility] [address]: Kandi Crockett NP REQ: [id number] RECD: 03/06/14 STATUS: EDNA BISHOP DR: Bell Poe DREDGE LEVER OPERATOR _ ORDERED: IMAGE ANALYSIS, HPV/Thin Prep FINAL DIAGNOSIS Negative for Intraepithelial lesion or Malignancy COMMENTS: Specimen sent to [facility] in [place], [place] on 03/09/14 by [id number] at 1219. Results will be reported separately. [...] was evaluated with the assistance of the [employer] Test Imaging System. Due to cytologic findings at the christian science practitioner microscope, comprehensive manual rescreening by a Press Worker Helper may be required. The Pap Smear is [...] performed at Main Lab DEPARTMENT OF PATHOLOGY, [facility] [address] [place], [place] [address] Vineet Garza M.D. Director [facility] # [id number] RUN DATE: 03/09/14 [facility] LAB LIVE PAGE 1 RUN TIME: 1229 [address] [place], [place] [address] Specimen Inquiry Patient: DIGNA MERZA [id number] ([facility]) 18 Because ethnic data is not always readily [...] 15-29 5 Kidney failure <15 (or dialysis) 19 Males: < 5.0 miu/ml Non females < [...] be confirmed by an alternate HCG method. 20 RUN DATE: 01/21/13 [facility] LAB LIVE PAGE 1 RUN TIME: [address] [place] [address] Specimen Inquiry Name: DIGNA MERAZ : [address]: Kandi Crockett NP Acct: [id number] Unit: [id number] AGE: 42 Location: [facility] Re01/17/13 SEX: F Status: REG REF SPEC: [id number] MANDEEP: 01/17/13-[address] [facility] [address]: Kandi Crockett NP REQ: [id number] RECD: 01/17/13 STATUS: MARIAN BISHOP DR: Bell Poe NP _ SOURCE: TOBIAS [facility]: ORDERED: YOLIS/Krish RNA Procedure Result Verified Site Chlamydia Trachomatis [...] result may have adverse psychosocial impact, the CDC recommends retesting by a method using an [...] performed at Main Lab DEPARTMENT OF PATHOLOGY, [facility] [address] [place], [place] [address] Vineet Garza M.D. Director [facility] Permit #[id number] RUN DATE: 01/21/13 [facility] LAB LIVE PAGE 2 RUN TIME: 1319 [address] [place], [place] [address] Specimen Inquiry Patient: DIGNA MERAZ [id number] (Continued) Specimen: [id number] Collected: 01/17/13-1429 Received: 01/17/13 (Continued) Procedure Result Verified Site GC (N. gonorrhoeae) RNA Final (continued) 01/21/13- 1318 N. gonorrhoeae are derived from high prevalence populations. Positive results in low prevalence populations should be interpreted carefully with the understanding that the likelihood of a false positive may be higher than a true positive. END OF REPORT * ML=Testing performed at Main Lab DEPARTMENT OF PATHOLOGY, [address] [place] [address] Vineet Garza M.D. Director [facility] Permit #[id number] 21 Anion gap measurement may be of limited value in the presence of any alkalosis, especially in a combined acid base disorder. . 22 A metabolite of Naproxen, O-desmethylnaproxen, has been shown to interfere with the Jendrassik-John Sevier method for measuring total bilirubin. Samples from patients who have taken Naproxen have shown spurious elevation in total bilirubin levels. 23 Because ethnic data is not always readily [...] 15-29 5 Kidney failure <15 (or dialysis) 24 If is still suspected, please repeat test after 48 to 72 hours. . This test detects intact HCG only and is indicated for the early detection of . 25 result george'd 26 Negative <0.91 Equivocal 0.91 - 1.09 Positive >1.09 Note: The CDC currently advises that Western blot testing be performed following all equivocal or positive EIA results. Final diagnosis should include appropriate clinical findings and a positive EIA which is also positive by Western blot. 27 Negative <0.91 Equivocal 0.91 - 1.09 Positive >1.09 . Note: IgM levels may peak at 3-6 weeks post infection, then gradually decline. FDA currently advises that Western Blot testing be performed following all equivocal or positive EIA results. Final diagnosis should include appropriate clinical findings and a positive EIA which is also positive by Western Blot. Procedures Date CPT Code Description Status 09/13/2017 Mammogram Completed 09/11/2016 Mammogram Completed 07/01/2015 Mammogram Completed 03/20/2014 Mammogram Completed 08/14/2012 Mammogram Completed 08/22/2011 Mammogram Completed Encounters Type Date Location Provider CPT E/M Dx Office Visit 08/02/2017 2:00p [facility] Latoya Mancini 00158 Z00.01 Noe Z12.31 G95.0 F90.1 G89.4 Office Visit 11/30/2016 3:00p [facility] Latoya Mancini M.D. 77805 G95.0 Office Visit 06/29/2016 2:00p [facility] Office Latoya Mancini M.D. 68026 Z00.00 F90.1 M54.5 N80.0 E55.9 Z12.31 Office Visit 02/09/2016 1:00p [facility] Office Latoya Mancini M.D. 46044 F90.1 M54.5 N80.0 Office Visit 08/10/2015 2:40p Main Office Clau Gonzalez M.D. 48791 N80.0 R10.31 Office Visit 05/11/2015 2:00p [facility] Latoya Mancini M.D. 30514 V70.0 268.9 617.9 Office Visit 01/01/2015 11:00a Main Office Deandre Singh M.D. 70167 461.8 Office Visit 12/16/2014 11:15a [place] [address] 462 Office Visit 04/04/2014 11:30a Main Office JAMIN Silva 91077 339.00 V72.41 Office Visit 06/27/2013 3:00p Main Office Deandre Singh M.D. 48415 339.00 Office Visit 12/12/2012 5:30p Main Office Tracey Diane, [facility] 57064 461.8 Office Visit 10/25/2011 7:50p Main Office Effie Oakes M.D. 27688 616.10 382.9 Office Visit 01/09/2011 7:45p Main Office Bell Poe, [facility] 01562 780.79 Office Visit 12/09/2010 10:45a Main Office Bell Poe [facility] 39504 346.90 Office Visit 10/12/2010 2:00p [facility] Rtacey dylan [place], [address] 306.3 M.DStephanie Office Visit 10/07/2010 9:00a Main Office Bell Poe [facility] 96681 314.01 110.5 626.4 Plan of Care 01/11/2018 - Latoya Mancini M.D.N39.0 Urinary tract infection, site not [id number] Pain in left hipNew Medication:Physical TherapyComments: Physical therapy Erin kinney dt ?endometriosis and hydromelia of the lowerspine.AllComments:~B_~U_Medication Management~b_~u_ Patient Understands medications she's taking? Yes No Are there Barriers to Adherence? Yes No Has the patient been asked about herbal supplements and therapies, and OTC meds? Yes No
--- OUTSIDE RECORDS SUMMARY | 2018-01-18 11:21 | XMS REPORT ---
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 Group Name: [place] [address] PayID: [id number] Problems Date Description Provider Status Onset: 08/10/2015 Attention deficit hyperactivity JAMIN Silva Active disorder Onset: 11/30/2016 Syringomyelia and syringobulbia Latoya Mancini M.D. Active Onset: 08/10/2015 Endometriosis of uterus Clau Goznalez M.D. Active Onset: 10/25/2011 Acute pharyngitis Effie Oakes M.D. Resolved Resolved: 08/10/2015 Onset: 10/25/2011 Vaginitis and vulvovaginitis Effie Oakes M.D. Resolved Resolved: 08/10/2015 Onset: 10/25/2011 Otitis media Effie Oakes M.D. Resolved Resolved: 08/10/2015 Family History Date Family Member(s) Problem(s) Comments Father prostate problems, hypothyroid. Mother breast cancer at age 54, schizophrenic Number of Children None First Brother anxiety Second Brother anxiety. Paternal Grandfather [place] in his late 60s Maternal Grandmother in her 80s- old age Paternal Uncle 2 uncles with mental illness Maternal Aunt 2 aunts - mental illness Social History Type Date Description Comments Education Highest level of education completed is a doctorate speech language Pathology, [employer]. Living Situation Lives with spouse Diet [...] hip and M.D. 06/29 back pain /2015 [facility] Physical Therapy fax: [phone] Augmentin 01/01 Hx Tablets 500-125mg 20tab 1 by mouth Deandre Lang s twice a day Samantha, - With Food M.D. 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 s bid for 7 , - days M.D. 12/11 Antipyrine/Benzoc 10/25 Hx Solution 54-14mg/m 15ml 4 gtts 382.9 [facility]. hallie l affected [facility], - ear qid prn M.D. 12/11 Diflucan 10/25 Hx Tablets 150mg 2tabs 1 po times 616.10 Effie M. January, - repeat in 4 M.D. 12/11 days symptoms persist Metrolotion 10/12 Hx Lotion 0.75% apply 2 times daily von - to clean [place], 10/25 face M.D. 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3 Lipid Profile 05/14/2015 Cholesterol [...] , Serum NEGATIVE finding Thin Prep cytology [facility] 03/06/2014 Cy RUN DATE: <SEE NOTE> HPV High Risk 03/06/2014 Human Papillomavirus See Comment 16 Source HPV High Risk Type 16, PCR Negative Negative HPV High Risk Type 18, PCR Negative Negative HPV Other Risk types Negative Negative 17 CBC Auto Diff 02/24/2013 White Blood Count [...] 0-2 Nucleated Red Blood Cells % 0.1 Laboratory test 02/24/2013 Beta HCG Quantitative 2948.0 MIU/ML High 0.0- 5.0 18 finding Comp Metabolic Panel 02/24/2013 Sodium 137 mmol/L [...] Egfr Non- 79.0 >60 Egfr 101.7 >60 19 Type & Screen 02/24/2013 Patient Blood Type A Positive Antibody Screen NEGATIVE GC/Chlamydia Amplified Rna 01/17/2013 GC/Chlamydia Rna (SEE [...] Platelet Volume 10.2 6.5-11.0 Lyme Igg/M W/RFX [place] 01/10/2011 Lyme IgG/IgM Ab <0.91 index 0.00- 0.90 26 Lyme Disease Ab, Quant, IgM <0.91 index 0.00-0.90 27 1 [place] Joiner: [id number] 2 Because ethnic data is not always [...] dialysis) 5 Critical Result K:2.6 Called to [id number] at: 11:05:47 by:[id number] Read back by:[id number] 6 <5.0 Negative 5.0 - 25.0 Indeterminate [...] 0.03 ng/mL Not supportive of diagnosis of [place] 0.03 - 0.50 ng/mL Indeterminate: suggest serial studies if clinically indicated. Greater than 0.5 ng/mL Consistent with diagnosis of [place] 10 Normal Range 180 to 914 Indeterminate Range 145 to 180 Deficient Range <145 11 Serologic response to B. burgdorferi infection is not detected, but cannot rule out early infection during which low or undetectable antibody levels to B. burgdorferi may be present. If clinically indicated, a new serum specimen should be submitted in 7-14 days. Test Performed by: [facility] - [address] [address] Book Cleaner: Yoseph Raza II, M.D., Ph.D. 12 FASTING 13 RESULTS VERIFIED BY REPEAT ANALYSIS 14 RESULTS VERIFIED BY REPEAT ANALYSIS 15 RUN DATE: 03/09/14 [facility] LAB LIVE PAGE 1 RUN TIME: [address] [place] [address] Specimen Inquiry Name: DIGNA MERAZ : [address]: Kandi Crockett STENCIL TYPIST Acct: [id number] Unit: [id number] AGE: 43 Location: [facility] Re03/06/14 SEX: F Status: REG REF SPEC: [id number] MANDEEP: 03/06/14-[address]: Kandi Crockett NP REQ: [id number] RECD: 03/06/14 STATUS: EDNA BISHOP DR: Bell Poe STENCIL TYPIST _ ORDERED: IMAGE ANALYSIS, HPV/Thin Prep FINAL DIAGNOSIS Negative for Intraepithelial lesion or Malignancy COMMENTS: Specimen sent to [facility] [employer] in [place], [place] on 03/09/14 by [id number] at 1219. Results will be reported separately. [...] was evaluated with the assistance of the ThinPrep Test Imaging System. Due to cytologic findings at the supervisor underwriting clerks microscope, comprehensive manual rescreening by a Assessor may be required. The Pap Smear is [...] performed at Main Lab DEPARTMENT OF PATHOLOGY, [facility] [address] [place], [place] [address] Vineet Garza M.D. Director [facility] # [id number] RUN DATE: 03/09/14 [facility] LAB LIVE PAGE 1 RUN TIME: 1229 [facility] [address] [place], [place] [address] Specimen Inquiry Patient: DIGNA MERAZ [id number] (Continued) 16 RESULT: Ectocervical/Endocervical 17 The following Other High Risk HPV types were not detected: 31, 33, 35, 39, 45, 51, 52, 56, 58, 59, 66, and 68 Test Performed by: [address] [address] Book Cleaner: Arjun Faye III, M.D. 18 Males: < 5.0 miu/ml Non females [...] confirmed by an alternate HCG method. 19 Because ethnic data is not always readily [...] 15-29 5 Kidney failure <15 (or dialysis) 20 RUN DATE: 01/21/13 [facility] LAB LIVE PAGE 1 RUN TIME: 3223 [address] [place], [place] [address] Specimen Inquiry Name: DIGNA MERAZ : [address]: Kandi Crockett NP Acct: [id number] Unit: [id number] AGE: 42 Location: [facility] Re01/17/13 SEX: F Status: REG REF SPEC: [id number] MANDEEP: 01/17/13-[address]: Kandi Crockett NP REQ: [id number] RECD: 01/17/13 STATUS: MARIAN BISHOP DR: Bell Poe NP _ SOURCE: TOBIAS TOLBERTESC: ORDERED: YOLIS/Ireneam RNA Procedure Result Verified Site Chlamydia Trachomatis [...] result may have adverse psychosocial impact, the [facility] recommends retesting by a method using an [...] performed at Main Lab DEPARTMENT OF PATHOLOGY, [facility] [address] [place], [place] [address] Vineet Garza M.D. Director [facility] Permit #[id number] RUN DATE: 01/21/13 [facility] LAB LIVE PAGE 2 RUN TIME: 2126 [address] [place], [place] [address] Specimen Inquiry Patient: DIGNA MERAZ [id number] (Continued) Specimen: [id number] Collected: 01/17/13-1429 Received: 01/17/13-1655 (Continued) Procedure Result Verified Site GC (N. gonorrhoeae) RNA Final (continued) 01/21/13- 1318 N. gonorrhoeae are derived from high prevalence populations. Positive results in low prevalence populations should be interpreted carefully with the understanding that the likelihood of a false positive may be higher than a true positive. END OF REPORT * ML=Testing performed at Main Lab DEPARTMENT OF PATHOLOGY, [address] [place] [address] Vineet Garza M.D. Director [facility] Permit #[id number] 21 Anion gap measurement may be of limited value in the presence of any alkalosis, especially in a combined acid base disorder. . 22 A metabolite of Naproxen, O-desmethylnaproxen, has been shown to interfere with the [place] method for measuring total bilirubin. Samples from [...] Office Visit 08/02/2017 2:00p [facility] Latoya Mancini, [address]72[address] Z00.01 Noe Z12.31 G95.0 F90.1 G89.4 Office Visit 11/30/2016 3:00p [facility] Latoya Mancini M.D. 83316 G95.0 Office Visit 06/29/2016 2:00p Main Office Latoya Mancini M.D. 55896 Z00.00 F90.1 M54.5 N80.0 E55.9 Z12.31 Office Visit 02/09/2016 1:00p Main Office Latoya Mancini M.D. 93942 F90.1 M54.5 N80.0 Office Visit 08/10/2015 2:40p Main Office Clau Gonzalez M.D. 26963 N80.0 R10.31 Office Visit 05/11/2015 2:00p [facility] Latoya Mancini M.D. 66851 V70.0 268.9 617.9 Office Visit 01/01/2015 11:00a Main Office Deandre Singh M.D. 62001 461.8 Office Visit 12/16/2014 11:15a [place] [address] 462 Office Visit 04/04/2014 11:30a Main Office JAMIN Silva 98143 339.00 V72.41 Office Visit 06/27/2013 3:00p Main Office Deandre Singh M.D. 64803 339.00 Office Visit 12/12/2012 5:30p Main Office JAMIN Vincent 47005 461.8 Office Visit 10/25/2011 7:50p Main Office Effie Oakes M.D. 57378 616.10 382.9 Office Visit 01/09/2011 7:45p Main Office JAMIN Silva 39678 780.79 Office Visit 12/09/2010 10:45a Main Office Bell Poe, [facility] 44375 346.90 Office Visit 10/12/2010 2:00p [facility] Tracey dylan [place], 21867 306.3 M.D. Office Visit 10/07/2010 9:00a Main Office Bell Poe, [facility] 21843 314.01 110.5 626.4 Plan of Care 01/11/2018 - Latoya Mancini M.D.N39.0 Urinary tract infection, site not specifiedNew Labs:Ua - Micro (Fma)Urine Culture & OjnmufpjwtkS75.552 Pain in left hipNew Medication:Physical TherapyComments:Physical therapy Erin kinney dt ?endometriosis and hydromelia of the lowerspine.AllComments:~B_~U_Medication Management~b_~u_ Patient Understands medications she's taking? Yes No Are there Barriers to Adherence? Yes No Has the patient been asked about herbal supplements and therapies, and OTC meds? Yes No
[2018-01-18] MEDS ORDERED: Morphine VIAL* 4 MG/ML VIAL (1 ml vial) IV ONE (12:49)
[2018-01-18] MEDS ORDERED: PROCHLORPERAZINE INJ 5 MG/ML 2 ML VIAL IV ONE (12:49)
--- NOTE | 2018-01-18 12:56 | ED ---
Abdominal Pain/Female - HPI Summary HPI Summary: Rt side pain under her rib area x.... days. Worse w/ deep breath - better w/ holding/splinting. Patient's recent medical/surgical history entails a hysterectomy early in October 2017 in [facility]. She had this hysterectomy due to endometriosis with adhesions, requiring extensive debridement including bladder erconstruction and mesh inserted in the place of her cervix. She wore a catheter for 1 week after the procedure and was given instructions to remove the catheter at home which she did without incident. Voiding well at that time. Patient reports she had pain after surgery that was persistent which she assumed was most likely due to gastritis as she was taking quite a bit of ibuprofen. This pain worsened over time and when it got to the point where she could not take a breath without being in excruciating pain, she decided to go to the nearest hospital. At that time in early November, she was in [facility] on vacation with her family. She developed abdominal distention with great discomfort which was found to be ascites with initial CT scan. Labs and vitals were normal which made this difficult to assess. After further investigation however, she was found to have a perforated left ureter which was leaking urine into her abdominal pain causing her to have peritonitis. A urology specialist was able to identify this and place a stent in the area. After this surgery, she had a catheter and nephrostomy - since removal of both, patient reports she's been able to void successfully. She did develop a urinary tract infection containing enterococcus faecalis which was treated with ciprofloxacin. She reports she had symptoms of burning and urinary urge prior to this UTI and she still hsa these sx - feels like the nerves in her vaginal tissue are irritated. A repeat urinalysis 1 week ago at PCP's office was negative for bacterial growth. She has not been back to see her specialist in [facility] since her surgery but plans to do so soon. She is due to have her ureteral stent out on January 28. Additional medical hx pertinent for hydromyelia (a condition of the cauda equina and pt reports in her case, a very mild form of spina bifida as medical providers feel this was present during development, no 2ndry throughout life). This was initially investigated by neurology and they did not believe this condition was linked to her pelvic pain prior to LAVINIA. She was trialed on a course of gabapentin w/o relief of pain but rather caused her to be drowsy during her work day. She stopped taking. She initially presented to PCP w/ pelvic pain but also had Lt groin/anterior hip pain. This was present prior to LAVINIA and persists beyond correction w/ LAVINIA and uretral injury. 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 and "discolored" liver with a a "small 8mm low density posterior inferior right lobe of the liver invisible on delayed imaging, possibly a small hemangioma." - History of Current Complaint Chief Complaint: EDAbdPain Stated Complaint: FLANK PAIN/SOB Time Seen by Provider: 01/18/18 12:02 Hx Obtained From: Patient, Family/Clinical Systems Educator - Hx Last Menstrual Period: 08/21/17 Pain Intensity: 8 Allergies/Adverse Reactions: Allergies Allergy/AdvReac Type Severity Reaction Status Date / Time No Known Allergies Allergy Verified 01/18/18 11:01 Home Medications: Home Medications Cholecalciferol TAB* [Vitamin D TAB*] 2,000 units PO DAILY 01/18/18 [History Confirmed 01/18/18] HYDROcodone/ACETAMIN 5-325 MG* [[place] 5-325 TAB*] 1 tab PO Q6H PRN 01/18/18 [ History Confirmed 01/18/18] Lidocaine 5% OINT* [Xylocaine 5% Oint*] 1 applic TOPICAL TID PRN 01/18/18 [ History Confirmed 01/18/18] Multivitamins/Minerals TAB* [Theragran/minerals TAB*] 1 tab PO DAILY 01/18/18 [ History Confirmed 01/18/18] [place]-3 Fatty Acids (Nf) [Fish Oil (NF)] 1,000 mg PO DAILY 01/18/18 [History Confirmed 01/18/18] Phenazopyridine TAB* [Pyridium 100 mg TAB*] 97.5 mg PO TID PRN 01/18/18 [ History Confirmed 01/18/18] Vitamin B Complex TAB* [B Complex-50*] 1 tab PO DAILY 01/18/18 [History Confirmed 01/18/18] PMH/Surg Hx/FS Hx/Imm Hx Endocrine/Hematology History: Denies: Hx Diabetes Cardiovascular History: Denies: Hx Hypertension, Hx Pacemaker/ICD History: Denies: Hx Renal Disease Musculoskeletal History: Reports: Hx Back Problems - hydromyelia Sensory History: Reports: Hx Contacts or Glasses Denies: Hx Hearing Aid Opthamlomology History: Reports: Hx Contacts or Glasses Neurological History: Reports: Hx Migraine Psychiatric History: Denies: Hx Panic Disorder - Cancer History Hx Chemotherapy: No Hx Radiation Therapy: No - Surgical History Surgery Procedure, Year, and Place: D & C 2012. laparotomy 2007 [facility] - for fibroids, endometriosis. 03/2017 - uterine fibroid embolization Infectious Disease History: No Infectious Disease History: Denies: History Other Infectious Disease, Traveled Outside the [place] in Last 30 Days - Family History Known Family History: Positive: None Family History: denies cardiovascular issues in family lineage - Social History Alcohol Use: Occasionally Substance Use Type: Reports: Marijuana Substance Use Comment - Amount & Last Used: Medical Marijuana Smoking Status (MU): Never Smoked Tobacco Physical Exam Vital Signs On Initial Exam: Initial Vitals Temp Pulse Resp BP Pulse Ox 97.8 F 65 14 120/77 99 01/18/18 11:02 01/18/18 11:02 01/18/18 11:02 01/18/18 11:02 01/18/18 11:02 Diagnostics - Vital Signs Vital Signs Temp Pulse Resp BP Pulse Ox 01/18/18 11:02 97.8 F 65 14 120/77 99 - Laboratory Result Diagrams: 01/18/18 13:10 01/18/18 13:10 Lab Statement: Any lab studies that have been ordered have been reviewed, and results considered in the medical decision making process. Abdominal Pain Fem Course/Dx - Course Course Of Treatment: Labs and vital signs are unremarkable for acute pathology. Abdominal ultrasound "no ascites visualized. Limited images of the right and left kidneys are negative for hydronephrosis. Left ureteral stent visualized." . CT abdomen and pelvis with contrast: "...". Pain improved w/ just 4mg moprhine and compazine at 12:50 (time is now 17:56). Advised close f/u w/ PCP. She also has a urology appt on Sunday she will keep. Reviewed danger s/sx of when to return to ED. NOTE: d/t abnormal liver findings on previous CT, will provide short course of oxycodone w/o acetaminophen to allow liver to continue to heal. She may use ibuprofen as well. - Diagnoses Provider Diagnoses: Abdominal pain Discharge - Sign-Out/Discharge Documenting (check all that apply): Discharge/Admit/Transfer - Discharge Plan Condition: Stable Disposition: HOME Prescriptions: oxyCODONE TAB* [Roxycodone TAB 5 mg*] 5 mg PO Q6H PRN #10 tab MDD 4 PRN Reason: Pain Patient Education Materials: Acute Abdominal Pain (ED) Referrals: Latoya Mancini MD [Primary Care Provider] - - Billing Disposition and Condition Condition: STABLE Disposition: HOME
[2018-01-18 13:16] LABS: Urine Appearance Cloudy; Urine Blood Negative (Negative); Urine Ketones Negative (Negative); Urine Protein Negative (Negative); Urine Specific Gravity 1.006 (1.010-1.030); Urine Urobilinogen Negative (Negative)
[2018-01-18 13:24] LABS: Urine Color Yellow
[2018-01-18 13:26] LABS: ABS Basophils 0.1 10^3/ul (0-0.2); ABS Eosinophils 0.1 10^3/ul (0-0.6); ABS Lymphocytes 1.7 10^3/ul (1.0-4.8); ABS Monocytes 0.4 10^3/ul (0-0.8); ABS Neutrophils 2.1 10^3/ul (1.5-7.7); ABS Nucleated RBC 0 10^3/ul; Eosinophil % 3.1 % (0-6); Hematocrit 40 % (35-47); Hemoglobin 13.5 g/dl (12.0-16.0); Lymphocyte % 38.3 % (25-47); Mean Corpuscular HGB Conc 34 g/dl (31-36); Mean Corpuscular Hemoglobin 31 pg (27-31); Mean Corpuscular Volume 93 fL (80-97); Mean Platelet Volume 7.9 um3 (7.4-10.4); Nucleated Red Blood Cells % 0; Platelet Count 221 10^3/ul (150-450); Red Blood Count 4.32 10^6/ul (4.0-5.4); Red Cell Distribution Width 13 % (10.5-15); White Blood Count 4.3 10^3/ul (3.5-10.8)
[2018-01-18 13:39] LABS: INR 0.99 (0.77-1.02)
[2018-01-18 13:43] LABS: EGFR Non-African American 77.2 (>60)
[2018-01-18] MEDS ORDERED: Iohexol 300* (CONTRAST) 10 ML SDV IV ONE (14:06)
--- NOTE | 2018-01-18 15:25 | RAD ---
Indication: Pelvic pain. Assess for ascites. Comparison: November 29, 2017 CT. Technique: Ultrasound of the 4 quadrants of the abdomen. REPORT AND IMPRESSION: No ascites visualized. Limited images of the RIGHT and LEFT kidneys are negative for hydronephrosis. LEFT ureteral stent visualized.
--- NOTE | 2018-01-18 16:36 | RAD ---
Indication: Left ureteral stent placement for ureteral perforation. Contrast: Administered 81.0 ml of OMNIPAQUE 300 mg/ml CT of the abdomen and pelvis was performed after oral and IV contrast administration. Coronal and sagittal reconstructed images were obtained. The lung bases demonstrate no pleural fluid, nodules or masses. Heart is of normal size without evidence of pericardial effusion. The liver is normal in size. No focal lesions or intrahepatic duct dilatation is noted. The common duct is not dilated. The gallbladder demonstrates no gallstones, pericholecystic fluid or wall thickening. The spleen is normal in size. No adrenal lesions are noted. The kidneys demonstrate symmetric nephrograms without focal lesions. There is placement of a left ureteral stent. The stent appears to be in normal location. No evidence of abnormal fluid is noted. No hydronephrosis of the left kidney is noted. The right kidney is unremarkable. CT of the pelvis demonstrates no dilated loops of bowel. The urinary bladder is unremarkable. The bony structures are grossly unremarkable. IMPRESSION: No abnormal masses or fluid collections are noted. Left ureteral stent appears to be in normal location.
[2018-01-18 18:57] VITALS: BP 118/67
== END 2018-01-18 18:57 | disposition home or self-care (01) ==
LOC: ED 10:40
DX: R10.9 Unspecified abdominal pain (principal); R10.2 Pelvic and perineal pain
CPT/HCPCS: 36415; 74177; 76705; 80053; 81003; 82140; 82150; 83605; 83690; 83735; 85025; 85610; 85730; 86140; 87040; 96374; 96375; 96376; 99282; J0780; J2270; Q9967

== ENCOUNTER 2018-03-13 07:33 | Emergency (ER) | payer OTHER ==
--- OUTSIDE RECORDS SUMMARY | 2018-03-13 07:42 | XMS REPORT ---
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 Group Name: [place] [address] PayID: [id number] Problems Date Description Provider Status Onset: 08/10/2015 [...] Brother anxiety Second Brother anxiety. Paternal Grandfather [place] in his late 60s Maternal Grandmother in her 80s- old age Paternal Uncle 2 uncles with mental illness Maternal Aunt 2 aunts - mental illness Social History Type Date Description Comments Education Highest level of education completed is a doctorate speech language Pathology, [employer]. Living Situation Lives with spouse Diet [...] Exercise Type/Frequency Exercises regularly walks to Current IC and back home daily. Lots of stretching. Allergies, Adverse Reactions, Alerts Date Description Reaction Status Severity Comments 10/25/2011 NKDA active Medications Medication Date Status Form Strength Qnty SIG Indications Ordering Provider Dexamethasone 02/27 Active Tablets 2mg 40tab 1-2 pills G43.119 Latoya Medel s by mouth Addis twice daily M.DStephanie Ondansetron 02/27 Active Tablets 4mg 30tab dissolve 1 G43.119 Latoya Medel Dispers s tablet by Addis, mouth every M.D. 8 hours as needed for nausea Lidocaine 01/15 Active Ointment 5% 35.44 apply to Latoya Medel 0gm vaginal Addis area as M.D. needed twice - three times daily. Physical Therapy 01/11 Active evaluate M25.552 Latoya Medel and treat Addis left hip M.DStephanie pain Ritalin 08/25 Active Tablets 10mg 60tab 1 by mouth F90.9 Latoya Medel s twice a day Noe Mancini Multivitamins Active Capsules 1 po qd Unknown / Fish Oil Active Capsules 1 po qd Unknown / Ibuprofen Active Tablets 800mg prn Unknown / Culturelle Active Capsules Unknown Digestive Health Probiotic Vitamin D3 Super Active Capsules 2000Unit 1 by mouth Unknown Strength / every day Vitamin B Complex Active Tablets 1 by mouth Unknown / every day Premarin 01/15 Hx Cream 0.625mg/G 60gm fingertip Latoya Medel M amount to Addis, - urethra 3 M.D. 02/26 times/wk 1 mo then 2x/ week after Hydrocodone-Aceta 11/30 Hx Tablets 5-325mg 60tab 1-2 by G95.0 Latoya Medel min s mouth 4 Addis, - times a day M.D. 01/11 as needed Physical Therapy 02/17 Hx evaluate Latoya Medel /2015 and treat. Addis, - ian hip and M.D. 06/29 back pain /[facility] fax: Augmentin 01/01 Hx Tablets 500-125mg 20tab 1 by mouth Deandre Lang /2014 s twice a day Samantha, - With Food M.DStephanie 05/11 Zofran 04/04 Hx Tablets 4mg 45tab 1-2 po 339.00 Bell s q4-6h prn Deepika, - TRAFFIC SAFETY ADMINISTRATOR 01/01 Hydrocodone/Aceta 04/04 Hx Tablets 5-325mg 30tab 1 po tid 339.00 Bell minophen s prn Deepika, - TRAFFIC SAFETY ADMINISTRATOR 01/01 Vicodin 06/27 Hx Tablets 5-300mg 30tab 1 po q4hrs Deandre Lang s prn dt Samantha, - call M.DStephanie 04/04 Verapamil HCL ER 06/27 Hx Caps ER 120mg 30cap take 1 Deandre Lang 24HR s daily for Samantha - prevention M.D. 04/04 Biaxin 12/12 Hx Tablets 500mg 20tab take one 461.8 s tablet po Diane, - bid x 10 TRAFFIC SAFETY ADMINISTRATOR 06/27 days all medication Augmentin 10/25 Hx Tablets 500-125mg 14tab one tab po 382.9 Effie Dale s bid for 7 jacek, - days M.D. 12/11 Antipyrine/Benzoc 10/25 Hx Solution 54-14mg/m 15ml 4 gtts 382.9 Effie hahn l affected Violette, - ear qid prn M.DStephanie 12/11 Diflucan 10/25 Hx Tablets 150mg 2tabs 1 po times 616.10 Effie M. January Violette, - repeat in 4 M.D. 12/11 days symptoms persist Metrolotion 10/12 Hx Lotion 0.75% apply 2 times daily von - to clean Felten, 10/25 face M.D. 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, - TRAFFIC SAFETY ADMINISTRATOR 06/27 Loprox 10/07 Hx Gel 0.77% 60gm apply 110.5 bid-tid Deepika, - TRAFFIC SAFETY ADMINISTRATOR 10/25 Ibuprofen Hx Tablets 1 po up to Unknown /0000 4 times a - day for 12/11 Cyclobenzaprine Hx Tablets 10mg prn Unknown HCL /0000 - 02/08 Vaginal Valium Hx 5mg Unknown /0000 - 08/02 Phenazopyridine Hx Tablets 200mg take one by Unknown HCL /0000 mouth 3 - times daily 02/26 as needed for pain Hydrocodone-Aceta Hx Tablets 5-325mg 60tab 1 by mouth Latoya Lizy minophen /0000 s four times Addis, - daily M.D. 02/26 Vital Signs Date Vital Result Comment 02/27/2018 BP Systolic 118 mmHg BP Diastolic 78 mmHg Heart Rate 72 /min Body Temperature 98.4 F Respiratory Rate 16 /min Height 64 inches 5'4" Weight 143.25 lb BMI (Body Mass Index) 24.6 kg/m2 01/11/2018 BP Systolic 122 mmHg BP Diastolic [...] Test Result H/L Range Note Laboratory test 01/18/2018 Blood Culture SEE RESULT BELOW 1 finding CBC Auto Diff 01/18/2018 White Blood Count 4.3 10^3/uL 3.5-10.8 Red Blood Count 4.32 10^6/uL 4.0-5.4 Hemoglobin 13.5 g/dL 12.0-16.0 Hematocrit 40 % 35-47 Mean Corpuscular Volume 93 fL 80-97 Mean Corpuscular Hemoglobin 31 pg 27-31 Mean Corpuscular HGB Conc 34 g/dL 31-36 Red Cell Distribution Width 13 % 10.5-15 Platelet Count 221 10^3/uL 150-450 Mean Platelet Volume 7.9 um3 7.4-10.4 Abs Neutrophils 2.1 10^3/uL 1.5-7.7 Abs Lymphocytes 1.7 10^3/uL 1.0-4.8 Abs Monocytes 0.4 10^3/uL 0-0.8 Abs Eosinophils 0.1 10^3/uL 0-0.6 Abs Basophils 0.1 10^3/uL 0-0.2 Abs Nucleated RBC 0 10^3/uL Granulocyte % 47.9 % 38-83 Lymphocyte % 38.3 % 25-47 Monocyte % 9.4 % High 0-7 Eosinophil % 3.1 % 0-6 Basophil % 1.3 % 0-2 Nucleated Red Blood Cells % 0 Comp Metabolic Panel 01/18/2018 Sodium 140 mmol/L 139-145 Potassium 3.8 mmol/L 3.5-5.0 Chloride 104 mmol/L 101-111 Co2 Carbon Dioxide 30 mmol/L 22-32 Anion Gap 6 mmol/L 2-11 Glucose 90 mg/dL 70-100 Blood Urea Nitrogen 14 mg/dL 6-24 Creatinine 0.80 mg/dL 0.51-0.95 BUN/Creatinine Ratio 17.5 8-20 Calcium 10.2 mg/dL 8.6-10.3 Total Protein 7.3 g/dL 6.4-8.9 Albumin 4.5 g/dL 3.2-5.2 Globulin 2.8 g/dL 2-4 Albumin/Globulin Ratio 1.6 1-3 Total Bilirubin 1.20 mg/dL High 0.2-1.0 Alkaline Phosphatase 15 U/L Low 34-104 Alt 17 U/L 7-52 Ast 18 U/L 13-39 Egfr Non- 77.2 >60 Egfr 99.3 >60 2 Laboratory test finding 01/18/2018 Magnesium 1.9 mg/dL 1.9-2.7 Amylase 42 U/L 29-103 Lipase 23 U/L 11.0-82.0 C Reactive Protein 3.09 mg/L < 5.00 3 Ammonia 38 mcmol/L 16-53 Lactic Acid 0.5 mmol/L 0.5-2.0 4 Inr/Protime 01/18/2018 Inr 0.99 0.77-1.02 Laboratory test finding 01/18/2018 Partial Thrombo Time 32.8 seconds 26.0 -36.3 PTT Urinalysis Profile 01/18/2018 Urine Appearance Cloudy Urine Specific [place] 1.006 Low 1.010-1.030 Urine pH 7.0 5-9 Urine Urobilinogen Negative Negative Urine Ketones Negative Negative Urine Protein Negative Negative Urine Leukocytes Negative Negative Urine Blood Negative Negative Urine Nitrite Negative Negative Urine Bilirubin Negative Negative Urine Glucose Negative Negative Urine Color Yellow Ua - Micro (Fma) 01/11/2018 Appearance clear Color yellow Glucose, Urine (Fma/CMC/CTX) neg Bilirubin neg Ketones neg SP Grav <=1.005 Blood small PH 5.5 Protein neg Urobil 0.2 Nitrite neg Leukocytes (Fma/CMC/Centrex) trace WBC (Fma,Centrex) 5-8 RBC 1-3 Mucus - /Lpf Epith few /Lpf Bacteria tr /Hpf Urine Culture And 01/11/2018 Urine Culture SEE RESULT BELOW 5 Sensitivities Poc Urinalysis 08/27/2017 Poc Glucose, Urine Negative Negative Poc Bilirubin, Urine Negative Negative Poc Ketone, Urine Negative Negative Poc Specific [place], Urine <=1.005 Low 1.010-1.030 Poc Blood, Urine Negative Negative Poc pH, Urine 6.0 5-9 Poc Protein, Urine Negative Negative Poc Urobilinogen, Urine 0.2 Negative Poc Nitrite, Urine Negative Negative Poc Leukocytes, Urine Negative Negative Poc Color, Urine Yellow Poc Clarity, Urine Clear 6 Comp Metabolic Panel 03/29/2017 Sodium 138 mmol/L [...] Egfr Non- 72.3 >60 Egfr 93.0 >60 7 Laboratory test finding 03/29/2017 Magnesium 2.0 mg/dL 1.9-2.7 HCG < 0.60 mIU/mL 8 CBC No Diff 03/29/2017 White Blood Count [...] Egfr Non- 108.1 >60 Egfr 139.0 >60 9 Potassium 2.6 mmol/L Low 3.5-5.0 10 Anion Gap 3 mmol/L 2-11 Laboratory test finding 03/29/2017 HCG < 0.60 mIU/mL 11 Magnesium 1.4 mg/dL Low 1.9-2.7 Urinalysis Profile 07/30/2015 Urine Color Yellow Urine Appearance Cloudy Urine Specific [place] 1.004 Low 1.010-1.030 Urine pH 6.0 5-9 [...] % 0.2 Inr/Protime 07/30/2015 Inr 1.07 0.89-1.11 12 Comp Metabolic Panel 07/30/2015 Sodium 137 mmol/L [...] Egfr Non- 69.2 >60 Egfr 89.0 >60 13 Laboratory test finding 07/30/2015 Troponin I 0.00 ng/mL <0.03 14 Folic Acid (Folate) > 20.00 ng/mL >3.99 Vitamin B12 585 pg/mL 180-914 15 Erythrocyte Sed Rate 8 mm/Hr 0-14 Lyme Disease Serology Negative Negative 16 Albertina (Antinuclear Antibodies) Negative Negative Complete Blood Count 05/14/2015 WBC 4.7 x10^3/UL 3.6-9.6 RBC 4.28 x10^6/UL 3.90-5.70 HGB 14.1 g/dL 12.1-17.2 HCT 41 % 36-50 MCV 96.0 fL 82.2-97.4 MCH 33.0 pg 27.6-33.3 MCHC 34.2 g/dL 33.0-35.5 RDW 13.1 % 11.6-13.7 PLT 252 x10^3/UL 150-400 MPV 7.4 fL 7.4-10.4 Gran # 2.5 x10^3/UL 1.5-7.2 Lymph# 1.9 x10^3/UL 0.7-4.9 Milam# 0.3 x10^3/UL 0.1-0.9 Gran % 51.0 % 42.2-75.2 Lymph % 41.4 % 20.5-51.1 Milam% 7.6 % 1.7-9.3 Lipid Profile 05/14/2015 Cholesterol 182 mg/dL 120-200 Triglycerides 58 mg/dL 30-200 HDL Cholesterol 68 mg/dL 30-85 LDL (Calculated) 102 CALC 0-129 VLDL Cholesterol 12 mg/dL 0-50 HDL Risk Factor 2.7 CALC 0.0-4.4 Laboratory test finding 05/14/2015 Vitamin D25 41 30-100 17 Comprehensive Metabolic Prof 05/14/2015 Sodium 137 mEq/L [...] 0.6-2.3 Alk. Phosphatase 16 U/L Low 30-110 18 Alt (SGPT) 16 U/L 7-35 Ast (Sgot) 21 U/L 5-34 Total Bilirubin 1.6 mg/dL High 0.2-1.3 19 GFR Non- >60 ml/min/1.73m^ >=60 GFR >60 ml/min/1.73m^ >=60 Laboratory test finding 05/14/2015 TSH 1.79 mIU/L 0.50-6.00 Free T4 1.12 ng/dL 0.75-1.54 Laboratory test finding 12/16/2014 Quickstrep NEG Negative Throat - Beta Strep Fma NEG@48HRS Laboratory test finding 04/04/2014 , Serum NEGATIVE HPV High Risk 03/06/2014 Human Papillomavirus Source See Comment 20 HPV High Risk Type 16, PCR Negative Negative HPV High Risk Type 18, PCR Negative Negative HPV Other Risk types Negative Negative 21 Thin Prep cytology [facility] 03/06/2014 Cy RUN DATE: 03/09/ <SEE 22 NOTE> Type & Screen 02/24/2013 Patient Blood [...] Egfr Non- 79.0 >60 Egfr 101.7 >60 23 Laboratory test 02/24/2013 Beta HCG Quantitative 2948.0 MIU/ML High 0.0- 5.0 24 finding CBC Auto Diff 02/24/2013 White Blood [...] Amplified Rna 01/17/2013 GC/Chlamydia Rna (SEE NOTE) 25 Laboratory test finding 12/12/2012 Quickstrep neg Negative [...] mmol/L 22-32 Anion Gap 5.0 mmol/L 2-11 26 Glucose 82 mg/dL 70-100 BUN 7 mg/dL 6-24 Creatinine 0.7 mg/dL 0.50-1.40 One Over Creatinine 1.42 BUN/Creatinine Ratio 10.0 8-20 Calcium 9.5 mg/dL 8.1-9.9 Total Protein 6.4 GM/DL 6.2-8.1 Albumin 4.1 GM/DL 3.6-5.4 Globulin 2.3 GM/DL 2-4 Albumin/Globulin Ratio 1.8 1-3 Bilirubin Total 1.8 mg/dL High 0.4-1.5 27 Alkaline Phosphatase 5 U/L Low 30-110 Alt (SGPT) 17 U/L 14-54 Ast (Sgot) 23 U/L 12-42 eGFR Non- 92.7 > 60 eGFR 119.2 > 60 28 Laboratory test finding 06/17/2012 (HCG) Serum NEGATIVE Negative 29 Laboratory test finding 01/10/2011 B12 714 pg/mL 230-1050 Comprehensive Metabolic Prof 01/10/2011 Albumin 4.6 g/dL 3.8-5.5 Alk. Phos. 13 U/L Low 30-110 30 Alt (SGPT) 14 U/L 7-35 Ast (Sgot) [...] Lyme IgG/IgM Ab <0.91 index 0.00- 0.90 31 Lyme Disease Ab, Quant, IgM <0.91 index 0.00-0.90 32 1 SEE RESULT BELOW Name: DIGNA MERAZ : [address]: Thee Lara MD Acct: [id number] Unit: [id number] AGE: 47 Location: ED Re01/18/18 SEX: F Status: DEP ER SPEC: [id number] MANDEEP: 01/18/18-[address] [facility] [address]: Hayley AMEZQUITA REQ: [id number] RECD: 01/18/183000 STATUS: COMP [facility] DR: Latoya Lara MD _ SOURCE: BLOOD,VENO SPDESC: ORDERED: Blood Cult Procedure Result Reported Site Aerobic Culture Bottle Final 01/23/18- 1345 ML No Growth Day 5 Anaerobic Culture Bottle Final 01/23/18- 1345 ML No Growth Day 5 * ML - Main Lab . END OF REPORT DEPARTMENT OF PATHOLOGY, [address] [place] [address] Vineet Garza M.D. Director [facility] # [id number] 2 Because ethnic data is not always [...] 5 Kidney failure <15 (or dialysis) 3 Acute inflammation: >10.00 4 [facility] Severe Sepsis and Septic Shock Management Bundle Measure requires all lactic acids initially measuring >2.0 mmol/L be repeated. 5 SEE RESULT BELOW Name: DIGNA MERAZ : [address]: Latoya Mancini MD Acct: [id number] Unit: [id number] AGE: 47 Location: [facility] Re01/11/18 SEX: F Status: REG REF SPEC: [id number] MANDEEP: 01/11/18-[address] [facility] [address]: Latoya Mancini MD REQ: [id number] RECD: 01/11/18 STATUS: MARIAN BISHOP DR: Elinor Romano MD _ SOURCE: URINE SPDESC: ORDERED: Urine Culture COMMENTS: [id number] parisa urine culture Copy Result to: ELINOR ROMANO ([id number]) Procedure Result Reported Site Urine Culture Final 01/13/18- 0800 ML No Growth (<1,000 CFU/mL) * ML - Main Lab . END OF REPORT DEPARTMENT OF PATHOLOGY, [address] [place] [address] Vineet Garza M.D. Director [facility] # [id number] Prosthetics Technician: [id number] 7 Because ethnic data is not always readily [...] 15-29 5 Kidney failure <15 (or dialysis) 8 <5.0 Negative 5.0 - 25.0 Indeterminate (Repeat testing recommended after 72 hours) >25.0 Positive Perimenopausal women can display HCG levels of up to 20 mIU/mL 9 Because ethnic data is not always readily [...] 15-29 5 Kidney failure <15 (or dialysis) 10 Critical Result K:2.6 Called to [id number] at: 11:05:47 by:[id number] Read back by:[id number] 11 <5.0 Negative 5.0 - 25.0 Indeterminate (Repeat testing recommended after 72 hours) >25.0 Positive Perimenopausal women can display HCG levels of up to 20 mIU/mL 12 Effective immediately, due to a laboratory mean normal Protime change, the reference range for the INR has changed. 13 Because ethnic data is not always readily [...] 15-29 5 Kidney failure <15 (or dialysis) 14 Reference Range and Interpretation: TnI (ng/mL) Interpretation Less Than 0.03 ng/mL Not supportive of diagnosis of [place] 0.03 - 0.50 ng/mL Indeterminate: suggest serial studies if clinically indicated. Greater than 0.5 ng/mL Consistent with diagnosis of [place] 15 Normal Range 180 to 914 Indeterminate Range 145 to 180 Deficient Range <145 16 Serologic response to B. burgdorferi infection is not detected, but cannot rule out early infection during which low or undetectable antibody levels to B. burgdorferi may be present. If clinically indicated, a new serum specimen should be submitted in 7-14 days. Test Performed by: [place] [address] Brazing Machine Operator Automatic: Yoseph Raza II, M.D., Ph.D. 17 FASTING 18 RESULTS VERIFIED BY REPEAT ANALYSIS 19 RESULTS VERIFIED BY REPEAT ANALYSIS 20 RESULT: Ectocervical/Endocervical 21 The following Other High Risk HPV types were not detected: 31, 33, 35, 39, 45, 51, 52, 56, 58, 59, 66, and 68 Test Performed by: [place] [address] Brazing Machine Operator Automatic: Arjun Faye III, M.D. 22 RUN DATE: 03/09/14 [facility] LAB LIVE PAGE 1 RUN TIME: [address] [place] [address] Specimen Inquiry Name: DIGNA MERAZ : [address]: Kandi Crockett NP Acct: [id number] Unit: [id number] AGE: 43 Location: [facility] Re03/06/14 SEX: F Status: REG REF SPEC: [id number] MANDEEP: 03/06/14-[address] [facility] [address]: Kandi Crockett NP REQ: [id number] RECD: 03/06/14-1826 STATUS: EDNA BISHOP DR: Bell Poe LEAD ENTERPRISE ARCHITECT _ ORDERED: IMAGE ANALYSIS, HPV/Thin Prep FINAL DIAGNOSIS Negative for Intraepithelial lesion or Malignancy COMMENTS: Specimen sent to [id number] in [place], [place] on 03/09/14 by [id number] at 1219. Results will be reported separately. [...] was evaluated with the assistance of the [employer]ote[employer] Test Imaging System. Due to cytologic findings at the treasury manager microscope, comprehensive manual rescreening by a Keg Header may be required. The Pap Smear is [...] performed at Main Lab DEPARTMENT OF PATHOLOGY, [employer] [place], [place] [address] Vineet Garza M.D. Director [facility] # [id number] RUN DATE: 03/09/14 [facility] LAB LIVE PAGE 1 RUN TIME: [address] [facility] [employer] [place], [place] [address] Specimen Inquiry Patient: DIGNA MERAZ [id number] (Continued) 23 Because ethnic data is not always [...] 5 Kidney failure <15 (or dialysis) 24 Males: < 5.0 miu/ml Non females < [...] be confirmed by an alternate HCG method. 25 RUN DATE: 01/21/13 [facility] LAB LIVE PAGE 1 RUN TIME: [address] [place] [address] Specimen Inquiry Name: DIGNA MERAZ : [address]: Kandi Crockett NP Acct: [id number] Unit: [id number] AGE: 42 Location: [facility] Re01/17/13 SEX: F Status: REG REF SPEC: [id number] MANDEEP: 01/17/[address] [facility] [address]: Kandi Crockett NP REQ: [id number] RECD: 01/17/13 STATUS: MARIAN BISHOP DR: Bell Poe NP _ SOURCE: [facility]: ORDERED: GC/Chlam RNA Procedure Result Verified [...] at Main Lab DEPARTMENT OF PATHOLOGY, [facility] [place] [id number] Vineet Garza M.D. Director [facility] Permit #[id number] RUN DATE: 01/21/13 [facility] LAB LIVE PAGE 2 RUN TIME: [address] [place] [address] Specimen Inquiry Patient: CHANDAN MERAZNNE [id number] (Continued) Specimen: [id number] Collected: 01/17/13-1429 Received: 01/17/13-1655 (Continued) Procedure Result Verified Site GC (N. gonorrhoeae) RNA Final (continued) 01/21/13- 8 N. gonorrhoeae are derived from high prevalence populations. Positive results in low prevalence populations should be interpreted carefully with the understanding that the likelihood of a false positive may be higher than a true positive. END OF REPORT * ML=Testing performed at Main Lab DEPARTMENT OF PATHOLOGY, [address] [place] [address] Vineet Garza M.D. Director [facility] Permit #[id number] 26 Anion gap measurement may be of limited value in the presence of any alkalosis, especially in a combined acid base disorder. . 27 A metabolite of Naproxen, O-desmethylnaproxen, has been shown to interfere with the Jendrassik-Ranjan method for measuring total bilirubin. Samples from patients who have taken Naproxen have shown spurious elevation in total bilirubin levels. 28 Because ethnic data is not always readily [...] 15-29 5 Kidney failure <15 (or dialysis) 29 If is still suspected, please repeat test after 48 to 72 hours. . This test detects intact HCG only and is indicated for the early detection of . 30 result george'd 31 Negative <0.91 Equivocal 0.91 - 1.09 Positive >1.09 Note: The CDC currently advises that Western blot testing be performed following all equivocal or positive EIA results. Final diagnosis should include appropriate clinical findings and a positive EIA which is also positive by Western blot. 32 Negative <0.91 Equivocal 0.91 - 1.09 Positive [...] Location Provider CPT E/M Dx Office Visit 01/11/2018 11:00a Main Office Latoya Mancini M.D. 21121 N39.0 M25.552 Office Visit 08/02/2017 2:00p [facility] Office Latoya Mancini M.D. 37638 Z00.01 Z12.31 G95.0 F90.1 G89.4 Office Visit 11/30/2016 3:00p [facility] Office Latoya Mancini M.D. 25871 G95.0 Office Visit 06/29/2016 2:00p Main Office Latoya Mancini M.D. 01491 Z00.00 F90.1 M54.5 N80.0 E55.9 Z12.31 Office Visit 02/09/2016 1:00p Main Office Latoya Mancini M.D. 14821 F90.1 M54.5 N80.0 Office Visit 08/10/2015 2:40p Main Office Clau Gonzalez M.D. 16196 N80.0 R10.31 Office Visit 05/11/2015 2:00p [facility] Office Latoya Mancini M.D. 00788 V70.0 268.9 617.9 Office Visit 01/01/2015 11:00a Main Office Deandre Singh M.D. 54838 461.8 Office Visit 12/16/2014 11:15a [place] [address] 462 Office Visit 04/04/2014 11:30a Main Office Bell Poe [facility] 03597 339.00 V72.41 Office Visit 06/27/2013 3:00p Main Office Deandre Singh M.D. 71839 339.00 Office Visit 12/12/2012 5:30p Main Office Tracey Contreras [facility] 83425 461.8 Office Visit 10/25/2011 7:50p Main Office Effie Oakes M.D. 00113 616.10 382.9 Office Visit 01/09/2011 7:45p Main Office Bell Poe [facility] 51984 780.79 Office Visit 12/09/2010 10:45a Main Office Bell Poe [facility] 95578 346.90 Office Visit 10/12/2010 2:00p [facility] Office Tracey Tyson 29720 306.3 MStephanieDStephanie Office Visit 10/07/2010 9:00a Main Office Bell Poe [facility] 44051 314.01 110.5 626.4 Plan of Care 02/27/2018 - Latoya Mancini M.D.G43.119 Migraine with aura, intractable, without status migrainosusNew Medication:Dexamethasone 2 mgOndansetron 4 mgComments:refer back to Dr. Shoemaker. if dexamethasone hurts your stomach - get some maalox.Follow up:physical is due in July.AllComments:~B_~U_Medication Management~b_~u_ Patient Understands medications she's taking? Yes No Are there Barriers to Adherence? Yes No Has the patient been asked about herbal supplements and therapies, and OTC meds? Yes No
[2018-03-13 07:50] VITALS: BP 159/102
[2018-03-13] MEDS ORDERED: HYDROcodone/ACETAMIN 5-325 MG* 1 TAB PO ONE (07:55)
--- NOTE | 2018-03-13 08:03 | UC ---
Neck Pain HPI - HPI Summary HPI Summary: GRADUAL ONSET OF RIGHT SHOULDER AND NECK PAIN LAST NIGHT. PATIENT DENIES DOING ANYTHING STRENUOUS, NO UNUSUAL PHYSICAL ACTIVITY DURING THE DAY. SHE TOOK SOME IBUPROFEN AND APPLIED A TENS UNIT WITH NO RELIEF OF HER SYMPTOMS. HAD A DIFFICULT TIME SLEEPING LAST NIGHT AND AT 4:30AM TOOK MORE IBUPROFEN. TRIED TO STRETCH HER ARM OUT AND PAIN WORSENED. RIGHT ARM IS NUMB AND TINGLY. SHE ARRIVES CRYING INCONSOLABLY. 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 Negative: Swelling, Redness - Allergies/Home Medications Allergies/Adverse Reactions: Allergies Allergy/AdvReac Type Severity Reaction Status Date / Time No Known Allergies Allergy Verified 03/13/18 07:38 PMH/Surg Hx/FS Hx/Imm Hx Previously Healthy: Yes - Surgical History Surgical History: Yes Surgery Procedure, Year, and Place: D & C 2012. laparotomy 2007 [facility] - for fibroids, endometriosis. 03/2017 - uterine fibroid embolization - Family History Known Family History: Positive: None Negative: Hypertension Family History: denies cardiovascular issues in family lineage - Social History Alcohol Use: Rare Substance Use Type: None Substance Use Comment - Amount & Last Used: Medical Marijuana Smoking Status (MU): Never Smoked Tobacco - Immunization History Most Recent Influenza Vaccination: Not UTD Review Of Systems Constitutional: Positive: Negative Skin: Positive: Negative Respiratory: Positive: Negative Cardiovascular: Positive: Negative Gastrointestinal: Positive: Negative Musculoskeletal: Positive: Arthralgia, Decreased ROM Neurological: Positive: Numbness All Other Systems Reviewed And Are Negative: Yes Physical Exam Triage Information Reviewed: Yes Appearance: Well-Nourished, Pain Distress - SEVERE. PT WITH EYES CLOSED, CRYING INCONSOLABLY, PRESSURED SPEECH, HOLDING RIGHT ARM Vital Signs: Initial Vital Signs Temp 97.8 F 03/13/18 07:42 Pulse 79 03/13/18 07:42 Resp 22 03/13/18 07:42 BP 159/102 03/13/18 07:42 Pulse Ox 100 03/13/18 07:42 Vital Signs Reviewed: Yes Eyes: Positive: Conjunctiva Clear ENT: Positive: Hearing grossly normal Neck: Positive: Supple, Tenderness @ - MUSCLES RIGHT NECK Respiratory: Positive: No respiratory distress, No accessory muscle use Cardiovascular: Positive: Pulses Normal Abdomen Description: Positive: Soft Musculoskeletal: Positive: No Edema, ROM Limited @ - RIGHT ARM/SHOULDER MOVEMENT LIMITED DUE TO EXTREME PAIN Neurological: Positive: Alert, Other: - DECREASED CEMENT RUBBER STRENGTH RIGHT HAND. POSITIVE SPURLINGS RIGHT SIDE Psychological: Positive: Age Appropriate Behavior Skin: Negative: rashes Neck Pain Course/Dx - Course Course Of Treatment: PATIENT PRESENTATION CLINICALLY CONSISTENT WITH CERVICAL RADICULOPATHY. GIVEN HER SEVERE PAIN AND DISTRESS WILL SENT TO [facility] BY [facility]BUL[facility] FOR FURTHER EVALUATION AND MANAGEMENT. - Differential Dx/Diagnosis Provider Diagnoses: CERVICAL RADICULOPATHY WITH INTRACTABLE PAIN - Physician Notification/Consults Discussed Patient Care With: Vincenzo Lara - TO [facility] Time Discussed With Above Provider: 07:59 Instructed by Provider To: Will See In ED Discharge - Sign-Out/Discharge Documenting (check all that apply): Discharge/Admit/Transfer - Discharge Plan Condition: Stable Disposition: TRANS HIGHER LVL OF CARE FAC Referrals: Latoya Mancini MD [Primary Care Provider] - - Billing Disposition and Condition Condition: STABLE Disposition: Trans Higher Lvl of Care Fac
[2018-03-13] MEDS ORDERED: Morphine VIAL* 10 MG/ML 1 ML VIAL IV ONE (08:05)
== END 2018-03-13 08:31 | disposition short-term general hospital (02) ==
LOC: UCEAST 07:33
DX: M54.12 Radiculopathy, cervical region (principal); M54.2 Cervicalgia
CPT/HCPCS: 99213; G0463; J2270

== ENCOUNTER 2018-03-13 08:40 | Emergency (ER) | payer OTHER ==
[2018-03-13] MEDS ORDERED: Ketorolac INJ* 30 MG/ML 1 ML VIAL IV PUSH ONE (09:04)
[2018-03-13] MEDS ORDERED: Diazepam SYRINGE* 5 MG/ML 2 ML SYRINGE (10 MG total) IV ONE (09:05)
--- NOTE | 2018-03-13 09:14 | UC ---
Neck Pain HPI - History of Current Complaint Chief Complaint: EDExtremityUpper Stated Complaint: RT ARM PAIN/NUMBNESS Time Seen by Provider: 03/13/18 08:43 Hx Obtained From: Patient Hx Last Menstrual Period: hysto Onset/Duration Of Injury/Symptoms: Hours - Pain in her neck and right scapula/ shoulder started last night. Worsened through the night, until she woke up at 0430 in severe, sharp pain. Took 800mg of ibuprofen without relief. Mechanism Of Injury: No Known Trauma - Had accupuncture yesterday but that was only in forearm and abdomen. (constipation.) Has not really been using the mouse very much for the last few days. Timing: Constant Onset/Duration: Gradual Onset Severity: Severe Pain Intensity: 10 Location: Diffuse Character: Sharp, Spasmotic Aggravating Factors: Movement Alleviating Factors: Nothing - Unable to find a comfortable position. Associated Signs & Symptoms: Positive: Paresthesia - Numbness, tingling in the thumb, index and middle fingers, as well as the radial aspect of the forearm. - Risk Factors Meningitis Risk Factors: Negative - Allergies/Home Medications Allergies/Adverse Reactions: Allergies Allergy/AdvReac Type Severity Reaction Status Date / Time No Known Allergies Allergy Verified 03/13/18 09:05 Home Medications: Home Medications 5-Hydroxytryptophan (5-Htp) [5-Htp] 1 cap PO DAILY 03/13/18 [History Confirmed 03/13/18] PMH/Surg Hx/FS Hx/Imm Hx Previously Healthy: Yes Endocrine History: Other - Has had some menopausal symptoms lately: migraine headache for the last 3 weeks. Has also had some night sweats. - Surgical History Surgical History: Yes Surgery Procedure, Year, and Place: D & C 2012. laparotomy 2007 [facility] - for fibroids, endometriosis. 03/2017 - uterine fibroid embolization. 10/2017 - hysterectomy with uretery injury, stent placed. 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 Alcohol Use: Occasionally Substance Use Type: Marijuana Substance Use Comment - Amount & Last Used: Medical Marijuana Smoking Status (MU): Former Smoker - Immunization History Most Recent Influenza Vaccination: Not UTD Review Of Systems Constitutional: Positive: Fever Skin: Positive: Negative Eyes: Positive: Negative ENT: Positive: Negative Respiratory: Positive: Negative Cardiovascular: Positive: Negative Gastrointestinal: Positive: Other - constipation Genitourinary: Positive: Negative Musculoskeletal: Positive: Decreased ROM Neurological: Positive: Negative Psychological: Positive: Anxious Physical Exam Triage Information Reviewed: Yes Appearance: Pain Distress - Tearful Vital Signs: Initial Vital Signs Pulse 65 03/13/18 08:42 BP 168/107 03/13/18 08:42 Pulse Ox 100 03/13/18 08:42 Vital Signs Reviewed: Yes Musculoskeletal Exam: Other - Tender to palpation over lower cervical spine. Mildly tender over scapula and shoulder joint. Decreased ROM of neck, shoulder. Unable to bring arm to horizontal. Diminished sensation to light touch over C6 and C7 dermatome. 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 Psychological Exam: Other - Appears normal but tearful from pain and perhaps anxiety from recent health problems. Skin Exam: Normal Discharge - Discharge Plan Referrals: Latoya Mancini MD [Primary Care Provider] -
[2018-03-13] MEDS ORDERED: HYDROcodone/ACETAMIN 5-325 MG* 1 TAB PO ONE (10:40)
[2018-03-13 11:28] VITALS: BP 128/82
--- NOTE | 2018-03-14 06:59 | ED ---
Werner Whitten Angela, scribed for Cherelle Villanueva MD on 03/13/18 at 1050 . Neck Pain - HPI Summary HPI Summary: Pt is a 47 yo woman who comes to the ED with pain in right shoulder and numbness in her right forearm and hand. - History of Current Complaint Chief Complaint: EDExtremityUpper Stated Complaint: RT ARM PAIN/NUMBNESS Time Seen by Provider: 03/13/18 08:43 Hx Obtained From: Patient Hx Last Menstrual Period: hysto Onset/Duration Of Injury/Symptoms: Hours - Pain in her neck and right scapula/ shoulder started last night. Worsened through the night, until she woke up at 0430 in severe, sharp pain. Took 800mg of ibuprofen without relief. Mechanism Of Injury: No Known Trauma - Had accupuncture yesterday but that was only in forearm and abdomen. (constipation.) Has not really been using the mouse very much for the last few days. Timing: Constant Onset/Duration: Gradual Onset Severity Currently: Severe Pain Intensity: 10 Pain Scale Used: 0-10 Numeric Location: Diffuse Character: Sharp, Spasmotic Aggravating Factors: Movement Alleviating Factors: Nothing - Unable to find a comfortable position. Associated Signs & Symptoms: Positive: Paresthesia - Numbness, tingling in the thumb, index and middle fingers, as well as the radial aspect of the forearm. - Risk Factors Meningitis Risk Factors: Negative - Allergies/Home Medications Allergies/Adverse Reactions: Allergies Allergy/AdvReac Type Severity Reaction Status Date / Time No Known Allergies Allergy Verified 03/13/18 09:05 Home Medications: Home Medications 5-Hydroxytryptophan (5-Htp) [5-Htp] 1 cap PO DAILY 03/13/18 [History Confirmed 03/13/18] PMH/Surg Hx/FS Hx/Imm Hx Endocrine/Hematology History: Denies: Hx Diabetes Cardiovascular History: Denies: Hx Hypertension, Hx Pacemaker/ICD History: Denies: Hx Renal Disease Musculoskeletal History: Reports: Hx Back Problems - hydromyelia Sensory History: Reports: Hx Contacts or Glasses Denies: Hx Hearing Aid Opthamlomology History: Reports: Hx Contacts or Glasses Neurological History: Reports: Hx Migraine Psychiatric History: Denies: Hx Panic Disorder - Cancer History Hx Chemotherapy: No Hx Radiation Therapy: No - Surgical History Surgery Procedure, Year, and Place: D & C 2013. laparotomy 2008 [facility] - for fibroids, endometriosis. 03/2017 - uterine fibroid embolization. 10/2017 - hysterectomy with uretery injury, stent placed. 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 Alcohol Use: Occasionally Substance Use Type: Reports: Marijuana Substance Use Comment - Amount & Last Used: Medical Marijuana Smoking Status (MU): Former Smoker Review of Systems Positive: Fever Eyes: Negative ENT: Negative Cardiovascular: Negative Respiratory: Negative Gastrointestinal: Other - constipation Genitourinary: Negative Positive: Decreased ROM Skin: Negative Neurological: Negative Positive: Anxious All Other Systems Reviewed And Are Negative: Yes Physical Exam Triage Information Reviewed: Yes Vital Signs On Initial Exam: Initial Vitals Pulse BP Pulse Ox 65 168/107 100 03/13/18 08:42 03/13/18 08:42 03/13/18 08:42 Vital Signs Reviewed: Yes Appearance: Positive: Pain Distress - tearful Skin: Positive: Warm, Other - Normal Head/Face: Positive: Normal Head/Face Inspection Eyes: Positive: Normal Musculoskeletal: Positive: Other - Tender to palpation over lower cervical spine. Mildly tender over scapula and shoulder joint. Decreased ROM of neck, shoulder. Unable to bring arm to horizontal. Diminished sensation to light touch over C6 and C7 dermatome. 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 Neurological: Positive: Alert, Oriented to Person Place, Time Psychiatric: Positive: Other - Appears normal but tearful from pain and perhaps anxiety from recent health problems. Diagnostics - Vital Signs Vital Signs Temp Pulse Resp BP Pulse Ox 03/13/18 10:12 138/102 03/13/18 10:00 70 98 03/13/18 09:42 71 141/84 98 03/13/18 09:27 20 03/13/18 09:12 65 141/78 98 03/13/18 09:00 68 99 03/13/18 08:53 64 100 03/13/18 08:47 99.1 F 71 22 168/107 100 03/13/18 08:42 65 168/107 100 - Laboratory Lab Statement: Any lab studies that have been ordered have been reviewed, and results considered in the medical decision making process. Re-Evaluation - Re-Evaluation Second Eval Re-Evaluation Time: 09:15 Change: Improved Comment: Feeling a bit better but still in a lot of pain. Encouraging movement of her neck and shoulder. Will order heat packs. Third Eval Re-Evaluation Time: 09:30 Change: Improved Fourth Eval Re-Evaluation Time: 10:20 Change: Improved - Still in a lot of pain but better. Agrees that a Victoria would probably be helpful. Neck Course/Dx - Diagnoses Differential Dx/HQI/PQRI: Positive: Adenitis, Arthritis, Torticollis Provider Diagnoses: Cervical radiculopathy Discharge - Sign-Out/Discharge Documenting (check all that apply): Discharge/Admit/Transfer - Discharge - Discharge Plan Condition: Improved Disposition: HOME Prescriptions: Hydrocodone/Acetaminophen [Victoria 5-325 mg] 1 tab PO Q4HR PRN #12 tab MDD 6 PRN Reason: pain Patient Education Materials: Cervical Radiculopathy (ED) Referrals: Latoya Mancini MD [Primary Care Provider] - Additional Instructions: Ibuprofen 600 mg every 6 hours or 800 mg every 8 hours as needed for pain. Victoria 1 tab every 4 hours as needed for more severe pain. Will cause drowsiness. Do gentle range of motion exercises over the next few days Follow up with your doctor this week. Return if you have worsening of your pain or if you are not improving over the next 2 days. - Billing Disposition and Condition Condition: IMPROVED Disposition: Home The documentation as recorded by the Werner maki Angela accurately reflects the service I personally performed and the decisions made by me, Cherelle Villanueva MD.
== END 2018-03-13 11:28 | disposition home or self-care (01) ==
LOC: ED 08:40
DX: M54.12 Radiculopathy, cervical region (principal); Q06.4 Hydromyelia; Z87.891 Personal history of nicotine dependence
CPT/HCPCS: 96374; 96375; 99283; J1885; J3360

== ENCOUNTER 2018-04-16 06:07 | Observation (INO) | payer OTHER ==
[~2018-04-16 06:07] MED LIST: Buffered Lidocaine 0.9% SYRIN* 5 ML/SYR SYRINGE INTRADERM ONE; Dexamethasone IV* 4 MG/ML 1 ML (4 MG) IV SLOW PU ONE; Famotidine IV* 10 MG/ML 2 ML (20 mg) IV ONE
[2018-04-16] MEDS ORDERED: Famotidine IV* 10 MG/ML 2 ML (20 mg) ONE (06:34)
[2018-04-16] MEDS ORDERED: Dexamethasone IV* 4 MG/ML 1 ML (4 MG) ONE (06:34)
[2018-04-16] MEDS ORDERED: ceFAZolin 2 GM PREMIX (*) 2 GM/50 ML BAG IVPB ONE (06:34)
[2018-04-16] MEDS ORDERED: Bacitracin IV* 50,000 UNITS INJ ONE (07:05)
[2018-04-16] MEDS ORDERED: Thrombin 5,000 UNITS* 1 APPLIC KIT - topical use - TOPICAL ONE (07:05)
[2018-04-16] MEDS ORDERED: Lidocain 1% EPI 1:100,000 * 30 ML MDV ONE (07:05)
[2018-04-16] MEDS ORDERED: Rocuronium* 10 MG/ML VIAL ONE (07:09)
[2018-04-16] MEDS ORDERED: fentaNYL* 50 MCG/ML 2 ML VIAL (100 MCG VIAL) ONE ×2 (07:09→09:07)
[2018-04-16] MEDS ORDERED: Midazolam* 1 MG/ML 2 ML VIAL (2 MG) ONE (07:09)
[2018-04-16] MEDS ORDERED: fentaNYL* 50 MCG/ML 2 ML VIAL (100 MCG VIAL) IV PRN (08:01)
[2018-04-16] MEDS ORDERED: oxyCODONE/Acetamin 5/325 MG* TAB PO PRN (08:01)
[2018-04-16] MEDS ORDERED: Naloxone* 0.4 MG/ML 1 ML VIAL IV PRN (08:01)
[2018-04-16] MEDS ORDERED: Acetaminophen IV 1GM/100ML * 1,000 MG/100 ML VIAL IVPB ONE (08:01)
[2018-04-16] MEDS ORDERED: Ondansetron INJ* 2 MG/ML VIAL IV PRN ×2 (08:01→08:52)
[2018-04-16] MEDS ORDERED: PROCHLORPERAZINE INJ 5 MG/ML 2 ML VIAL IV PRN (08:01)
[2018-04-16] MEDS ORDERED: oxyCODONE TAB* 5 MG TAB PO PRN (08:01)
[2018-04-16] MEDS ORDERED: Sterile Water for Inj* 10 ML ONE (08:12)
[2018-04-16] MEDS ORDERED: Propofol* 10 MG/ML 20 ML BTL IV PUSH ONE (08:12)
[2018-04-16] MEDS ORDERED: Phenylephrine INJ* 10 MG/ML 1 ML VIAL (10 MG) ONE (08:13)
[2018-04-16] MEDS ORDERED: Ondansetron INJ* 2 MG/ML VIAL ONE (08:19)
[2018-04-16] MEDS ORDERED: Ketorolac INJ* 30 MG/ML 1 ML VIAL ONE (08:19)
[2018-04-16] MEDS ORDERED: Desflurane* 240 ML INH ONE (08:26)
[2018-04-16] MEDS ORDERED: Sugammadex * 500 MG/5 ML VIAL IV PUSH ONE (08:36)
[2018-04-16] MEDS ORDERED: HYDROcodone/ACETAMIN 5-325 MG* 1 TAB PO PRN (08:52)
[2018-04-16] MEDS ORDERED: Acetaminophen TAB* 325 MG PO PRN (08:52)
[2018-04-16] MEDS ORDERED: Acetaminophen IV 1GM/100ML * 100 ML ONE (09:07)
[2018-04-16] MEDS: HYDROmorphone INJ* 0.5 MG/0.5 ML SYRINGE IV PRN ×2 (09:26→09:57)
[2018-04-16] MEDS ORDERED: HYDROmorphone INJ* 0.5 MG/0.5 ML SYRINGE ONE ×2 (09:26→09:54)
[2018-04-16] MEDS ORDERED: oxyCODONE TAB* 5 MG TAB ONE ×2 (09:54→14:05)
--- NOTE | 2018-04-16 11:02 | RAD ---
HISTORY: RIGHT POSTERIOR CERVICAL DISCECTOMY C6-7 COMPARISONS: MRI dated March 21, 2017 VIEWS: 1, portable intraoperative view of the cervical spine for localization during spinal surgery FINDINGS: Limited portable intraoperative view of the cervical spine performed at 8:08 AM demonstrates a metallic probe opposite the spinous process of C6, counting from C2. IMPRESSION: LIMITED PORTABLE VIEW OF THE CERVICAL SPINE FOR LOCALIZATION DURING SPINAL SURGERY.
[2018-04-16] MEDS: Magnesium Hydroxide LIQ* 30 ML UDC PO PRN (12:02)
[2018-04-16] MEDS: oxyCODONE TAB* 5 MG TAB PO PRN ×2 (14:07→18:26)
[2018-04-17] MEDS: oxyCODONE TAB* 5 MG TAB PO PRN (05:38)
[2018-04-17 07:54] VITALS: BP 110/59
--- NOTE | 2018-04-17 07:56 | PN ---
Progress Note - Progress Note Date of Service: 04/17/18 SOAP: Subjective: [S/p posterior cervical discectomy C6-7 on the right, POD #1. Feeling sore this morning in the posterior neck. RUE pain improved, was able to sleep well last night. RUE numbness/tingling persistent. Denies fever, chills, nausea and headache. Eating and drinking well. Has been up and ambulating independently. Pain well controlled with PO meds. ] Objective: [ Vital Signs: Temp Pulse Resp BP Pulse Ox 98.1 F 76 17 107/59 98 04/17/18 04:36 04/17/18 04:36 04/17/18 05:38 04/17/18 04:36 04/17/18 04:36 General: Alert and NAD. Neuro: Sensation diminished to C7 distribution in RUE, triceps 4/5. LUE sensation and motor normal. Incision: Intact with gin. Dressing changed this morning. No swelling erythema.] Assessment: [Satisfactory post-op.] Plan: [1. Discharge home today, 2. Discharge instructions discussed. ]
[2018-04-17] MEDS: Magnesium Hydroxide LIQ* 30 ML UDC PO PRN (08:01)
--- NOTE | 2018-04-17 12:45 | OP ---
DATE OF OPERATION: 04/16/18 - ROOM #332 DATE OF : 72 SURGEON: Aldo Garcia MD. 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 ANESTHESIA: General. PRE-OP DIAGNOSIS: Herniated nucleus pulposus, C6-C7 on the right. POST-OP DIAGNOSIS: Herniated nucleus pulposus, C6-C7 on the right. OPERATIVE PROCEDURE: Posterior cervical diskectomy, C6-C7, on the right with microdissection. DESCRIPTION OF PROCEDURE: After satisfactory general anesthesia was obtained, the patient was placed on the operating table in a prone position with the chest supported on chest rolls and the head maintained in the Gamez headrest to allow for slight neck flexion. The posterior cervical area was then clipped , prepped, and draped in a sterile manner for posterior cervical exposure and a skin incision outlined over C6 and C7. This incision was carried down to the level of the cervical fascia and the fascia was divided along the spinous processes of C6 and C7. The paraspinal musculature was stripped away from the right side utilizing the monopolar cautery and periosteal elevator. An intra- operative x-ray was obtained verifying localization of the C6 spinous process, after which partial hemilaminectomy was carried out by removing the inferior aspect of the C6 lamina. Medial aspect of the facet complex and superior aspect of C7 lamina with a combination of the Midas Yvon drill and Kerrison rongeurs. A generous foraminotomy was carried out over the C7 nerve root. At this time, the operating microscope was brought into the field and the remainder of the procedure was done under microscopic visualization. Epidural venous structures were dissected free, coagulated, and divided utilizing microdissection. Projecting beneath the C7 nerve root in the axillary region of the exposure was a significant disk fragment covered by thinly stretched rim of a posterior longitudinal ligament. An opening was made in the posterior longitudinal ligament. Multiple fragments of disk material were removed from beneath the C7 nerve root. It was felt that a satisfactory decompression had been achieved. After assuring adequate hemostasis, the wound was thoroughly irrigated, after which a piece of Gelfoam was placed over the laminectomy defect. The fascia was then reapproximated with 0 Vicryl suture. The subcutaneous tissues were closed with 3-0 Vicryl suture and the skin closed with skin clips. The estimated blood loss was less than 50 cc and the final sponge, padding, and needle counts were correct. The patient was taken to the recovery room, extubated, and in a stable condition. [id number]/[facility] #: [id number] MTDD
--- NOTE | 2018-04-20 04:57 | DS ---
DISCHARGE SUMMARY: DATE OF ADMISSION: 04/16/18. DATE OF DISCHARGE: 04/17/18. ATTENDING PHYSICIAN: Dr. Aldo Garcia.* (DICTATED BY BIA HARRIS) DISCHARGE DIAGNOSIS: Cervical disk displacement, C6-7. SPECIAL PROCEDURE: Posterior cervical discectomy C6-7 on the right. HOSPITAL COURSE: This 47-year-old female was seen in the office with a significant right-sided cervical radiculopathy consistent with MRI findings of a herniated disk at C6-7 on the right. She failed to improve with conservative treatments and elected for surgical intervention. On the day of admission, she was taken to surgery where under general anesthesia, posterior cervical discectomy at C6-7 on the right operation was carried out. Postoperatively, the right upper extremity pain was improved and she was feeling well. Pain was well controlled with oral pain mediations. On postop day#1, she complained of posterior neck soreness. She was eating, drinking, and voiding without difficulty. She was discharged home to the care of her family. Discharge instructions were discussed with the patient and provided. She will be seen in office in approximately two weeks for followup. BIA HARRIS [id number]/[facility] #: [id number] MTDD
== END 2018-04-17 09:45 | disposition home or self-care (01) ==
LOC: OR 06:07 → SSU 08:52
PROVIDERS: ADMIT Neurological Surgery; ATTEND Neurological Surgery
DX: M50.123 Cervical disc disorder at C6-C7 level with radiculopathy (principal); M50.223 Other cervical disc displacement at C6-C7 level; M50.323 Other cervical disc degeneration at C6-C7 level
CPT/HCPCS: 72020; 88304; 96374; 96375; A9270-GY; G0378; J0690; J1100; J1170; J1885; J2250; J2405; J2704; J3010

== ENCOUNTER 2019-01-05 20:45 | Emergency (ER) | payer OTHER ==
--- NOTE | 2019-01-05 21:55 | ED ---
Complex/Multi-Sys Presentation - HPI Summary HPI Summary: This patient is a 48 year old F presenting to ED with a chief complaint of L lower back pain and L leg pain since 1 week ago. The CC is described as gradually worsened since onset. The pain does not radiate to the front but down the L leg. The patient rates the pain 8/10 in severity. Symptoms aggravated by movement and ambulation. Symptoms alleviated by nothing. Patient denies fever, any urinary sx, or bowel sx. - History Of Current Complaint Chief Complaint: EDFlankPain Time Seen by Provider: 01/05/19 21:46 Hx Obtained From: Patient Onset/Duration: Gradual Onset, Lasting Weeks - since 1 week ago, Still Present Timing: Constant, Weeks Severity Currently: Severe - / Location: Pain At: - L lower back and L leg Aggravating Factor(s): movement and ambulation Alleviating Factor(s): nothing Associated Signs And Symptoms: Positive: Back Pain - L lower, Other - L leg pain ; denies urinary sx and bowel sx. Negative: Fever - Allergies/Home Medications Allergies/Adverse Reactions: Allergies Allergy/AdvReac Type Severity Reaction Status Date / Time No Known Allergies Allergy Verified 04/16/18 06:38 PMH/Surg Hx/FS Hx/Imm Hx Endocrine/Hematology History: Denies: Hx Diabetes Cardiovascular History: Denies: Hx Hypertension, Hx Pacemaker/ICD, Other Cardiovascular Problems/ Disorders Respiratory History: Denies: Other Respiratory Problems/Disorders GI History: Denies: Other GI Disorders History: Reports: Other Problems/Disorders - Left ureter hole,urine leakage into abdomen, peritionitis, after hysterecto Denies: Hx Renal Disease Musculoskeletal History: Reports: Hx Back Problems - hydromyelia Denies: Other Musculoskeletal History Sensory History: Reports: Hx Contacts or Glasses Denies: Hx Hearing Aid Opthamlomology History: Reports: Hx Contacts or Glasses Neurological History: Reports: Hx Headaches, Hx Migraine, Other Neuro Impairments/Disorders - hydromyelia of conus medularis Denies: Hx Nerve Disease, Hx Seizures Psychiatric History: Denies: Hx Panic Disorder - Cancer History Hx Chemotherapy: No Hx Radiation Therapy: No - Surgical History Surgery Procedure, Year, and Place: D & C 2012. laparotomy 2007 [facility] - for fibroids, endometriosis. 03/2017 - uterine fibroid embolization. 10/2017 - hysterectomy with uretery injury, stent placed. 01/2018 - stent removed - LEFT URETER Hx Anesthesia Reactions: No Infectious Disease History: No Infectious Disease History: Denies: History Other Infectious Disease, Traveled Outside the [place] in Last 30 Days - Family History Known Family History: Negative: Cardiac Disease, Hypertension Family History: denies cardiovascular issues in family lineage - Social History Alcohol Use: Occasionally Substance Use Type: Reports: Marijuana Substance Use Comment - Amount & Last Used: Medical Marijuana Smoking Status (MU): Former Smoker Review of Systems Negative: Fever Positive: Other - denies bowel sx Positive: no symptoms reported Positive: Other - L lower back pain and L leg pain All Other Systems Reviewed And Are Negative: Yes Physical Exam - Summary Physical Exam Summary: VITAL SIGNS: Reviewed. GENERAL: Patient is a well-developed and nourished FEMALE who is lying comfortable in the stretcher. Patient is not in any acute respiratory distress. HEAD AND FACE: No signs of trauma. No ecchymosis, hematomas or skull depressions. No sinus tenderness. EYES: PERRLA, EOMI x 2, No injected conjunctiva, no nystagmus. EARS: Hearing grossly intact. Ear canals and tympanic membranes are within normal limits. MOUTH: Oropharynx within normal limits. NECK: Supple, trachea is midline, no adenopathy, no JVD, no carotid bruit, no c- spine tenderness, neck with full ROM. CHEST: Symmetric, no tenderness at palpation LUNGS: Clear to auscultation bilaterally. No wheezing or crackles. CVS: Regular rate and rhythm, S1 and S2 present, no murmurs or gallops appreciated. ABDOMEN: Soft, non-tender. No signs of distention. No rebound no guarding, and no masses palpated. Bowel sounds are normal. EXTREMITIES: FROM in all major joints, no edema, no cyanosis or clubbing. Tenderness over L mid buttock. Bilateral straight leg raise test is positive, L more than R, L at 20 degrees and R at 40 degrees. NEURO: Alert and oriented x 3. No acute neurological deficits. Speech is normal and follows commands. SKIN: Dry and warm Triage Information Reviewed: Yes Vital Signs On Initial Exam: Initial Vitals Temp Pulse Resp BP Pulse Ox 99.6 F 90 20 154/92 99 01/05/19 20:52 01/05/19 20:52 01/05/19 20:52 01/05/19 20:52 01/05/19 20:52 Vital Signs Reviewed: Yes Diagnostics - Vital Signs Vital Signs Temp Pulse Resp BP Pulse Ox 01/05/19 20:52 99.6 F 90 20 154/92 99 - Laboratory Lab Statement: Any lab studies that have been ordered have been reviewed, and results considered in the medical decision making process. Re-Evaluation - Re-Evaluation First Eval Re-Evaluation Time: 22:39 Change: Improved Comment: The patient feels better. Complex Multi-Symp Course/Dx Assessment/Plan: This patient is a 48 year old F presenting to ED with a chief complaint of L lower back pain and L leg pain since 1 week ago. In the ED course , the patient was given Flexeril, Toradol, and Percocet. This patient will be discharged with dx of sciatica. Patient understands and agrees with this plan. - Diagnoses Differential Diagnoses/HQI/PQRI: Other - sciatica Provider Diagnoses: Sciatica Discharge - Sign-Out/Discharge Documenting (check all that apply): Patient Departure - discharge Patient Received Moderate/Deep Sedation with Procedure: No - Discharge Plan Condition: Stable Disposition: HOME Prescriptions: Cyclobenzaprine TAB* [Flexeril 10 MG TAB*] 10 mg PO TID PRN #20 tab PRN Reason: Spasms - Muscle Ibuprofen TAB* [Motrin TAB* 600 MG] 600 mg PO Q6H #30 tab Oxycodone/ASA 5/325 (NF) [Percodan 5/325 (NF)] 1 tab PO Q6H PRN #14 tab MDD 4 PRN Reason: Pain Patient Education Materials: Sciatica (ED) Referrals: Latoya Mancini MD [Primary Care Provider] - Additional Instructions: Use warm compresses. PLEASE RETURN TO THE ED IMMEDIATELY FOR WORSENING OR CONCERNING SYMPTOMS. - Attestation Statements Document Initiated by Scribe: Yes Documenting Scribe: Daniel Dobson Provider For Whom Scribe is Documenting (Include Credential): Be Luis MD Scribe Attestation: Daniel Whitten, scribed for Be Luis MD on 01/05/19 at [id number]. Status of Scribe Document: Ready
[2019-01-05] MEDS ORDERED: Cyclobenzaprine TAB* 10 MG PO ONE (21:56)
[2019-01-05] MEDS ORDERED: Ketorolac INJ* 30 MG/ML 1 ML VIAL IM ONE (21:56)
[2019-01-05] MEDS ORDERED: oxyCODONE/Acetamin 5/325 MG* TAB PO ONE (21:57)
[2019-01-05 22:24] LABS: Urine Appearance Clear; Urine Bilirubin Negative (Negative); Urine Blood Negative (Negative); Urine Color Straw; Urine Glucose Negative (Negative); Urine Ketones Negative (Negative); Urine Nitrite Negative (Negative); Urine Protein Negative (Negative); Urine Specific Gravity 1.008 (1.010-1.030); Urine Urobilinogen Negative (Negative)
[2019-01-06 00:54] VITALS: BP 109/69
== END 2019-01-06 00:05 | disposition home or self-care (01) ==
LOC: ED 20:45
DX: M54.42 Lumbago with sciatica, left side (principal); Z87.891 Personal history of nicotine dependence
CPT/HCPCS: 81003; 96372; 99282; A9270-GY; J1885